=== PATIENT | female | born 1945 | race Caucasian/White ===

== ENCOUNTER 2018-05-21 09:39 | Emergency (ER) | payer MEDICARE ==
--- NOTE | 2018-05-21 10:24 | ED ---
Palpitations / Dysrhythmia - HPI Summary HPI Summary: Pt is a 72 y/o female who presents to the ED c/o palpitations since this morning. She began to feel intermittent palpitations underneath her left breast , lasting between 15 and 60 seconds at a time. Pt reports no current palpitations. During each episode she also noted numbness to the left side of her face and neck. Pt denies any CP or SOB. She also states that she had high BP today. She had a cardiac catheterization 2 years ago after coding during a knee surgery, and her arteries were clean. PMHx HLD, HTN, and DVT. - History of Current Complaint Chief Complaint: EDDysrhythmPalp Time Seen by Provider: 05/21/18 10:06 Hx Obtained From: Patient Onset/Duration: Gradual Onset, Resolved Timing: Intermittent Episodes Lasting: - 15-60 secs Severity Currently: None Character: Pounding Aggravating: Nothing Alleviating: Nothing Associated Signs & Symptoms: Negative - Allergy/Home Medications Allergies/Adverse Reactions: Allergies Allergy/AdvReac Type Severity Reaction Status Date / Time Sulfa (Sulfonamide AdvReac Hives Verified 05/21/18 10:02 Antibiotics) Home Medications: Home Medications Cyanocobalamin (Vitamin B-12) [B-12] 1,000 mcg PO DAILY 05/21/18 [History Confirmed 05/21/18] Latanoprost 0.005%* [Xalatan 0.005%*] 1 drop BOTH EYES QPM 05/21/18 [History Confirmed 05/21/18] Magnesium Oxide [Magnesium] 250 mg PO DAILY 05/21/18 [History Confirmed 05/21/18 ] Potassium Chlor TAB* [Klor Con ER TAB*] 10 meq PO DAILY 05/21/18 [History Confirmed 05/21/18] Vitamin B Complex CAP* [B Complex CAP*] 1 cap PO DAILY 05/21/18 [History Confirmed 05/21/18] PMH/Surg Hx/FS Hx/Imm Hx Endocrine/Hematology History: Denies: Hx Diabetes Cardiovascular History: Reports: Hx Deep Vein Thrombosis, Hx Hypercholesterolemia, Hx Hypertension Denies: Hx Atrial Fibrillation, Hx Pacemaker/ICD Respiratory History: Denies: Hx Asthma Musculoskeletal History: Reports: Hx Arthritis - LOW BACK, Hx Back Problems - low back pain Denies: Hx Rheumatoid Arthritis, Hx Osteoporosis Sensory History: Reports: Hx Cataracts - HX OF, Hx Contacts or Glasses, Hx Glaucoma Denies: Hx Hearing Aid Opthamlomology History: Reports: Hx Cataracts - HX OF, Hx Contacts or Glasses, Hx Glaucoma Neurological History: Reports: Other Neuro Impairments/Disorders - PAIN CLINIC PT Psychiatric History: Denies: Hx Panic Disorder - Cancer History Cancer Type, Location and Year: uterine cancer Hx Chemotherapy: No Hx Radiation Therapy: No - Surgical History Surgery Procedure, Year, and Place: 2013-June, HYsterectomy. c-sections in 1970s [place]. 1974 & 1988 eye surgeries WITH SCLERAL JEAN CARLOS(PLASTIC) [place],. 2007 BILATERAL CATARACT REMOVED [place]. 2007 VITRECTOMY [place] Hx Anesthesia Reactions: No Infectious Disease History: No Infectious Disease History: Denies: Traveled Outside the [place] in Last 30 Days - Family History Known Family History: Negative: Other - breast CA - Social History Alcohol Use: Daily Alcohol Amount: 2 glasses of wine daily Hx Substance Use: No Substance Use Type: Reports: None Hx Tobacco Use: Yes Smoking Status (MU): Former Smoker Type: Cigarettes Amount Used/How Often: 1/2 PPD FOR ABOUT 10 YEARS Length of Time of Smoking/Using Tobacco: 10 YEARS ABOUT Have You Smoked in the Last Year: No Review of Systems Positive: Palpitations. Negative: Chest Pain Negative: Shortness Of Breath Positive: Numbness - left side of neck and face All Other Systems Reviewed And Are Negative: Yes Physical Exam - Summary Physical Exam Summary: GENERAL: Patient is a well-developed and nourished F who is lying comfortable in the stretcher. Patient is not in any acute respiratory distress. HEAD AND FACE: Normocephalic EYES: PERRLA, EOMI x 2. EARS: Hearing grossly intact. MOUTH: Oropharynx within normal limits. NECK: Supple, trachea is midline, no adenopathy, no JVD, no carotid bruit. CHEST: Symmetric, no tenderness at palpation LUNGS: Clear to auscultation bilaterally. No wheezing or crackles. CVS: Regular rate and rhythm, S1 and S2 present, no murmurs or gallops appreciated. ABDOMEN: Soft, non-tender. Bowel sounds are normal. No abdominal abnormal pulsations. EXTREMITIES: Full ROM in all major joints, no edema, no cyanosis or clubbing. NEURO: Alert and oriented x 3. No acute neurological deficits. Speech is normal and follows commands. Cranial nerves II-XII grossly intact, no dysmetria finger to nose, nml heel to rodriguez SKIN: Dry and warm GCS: 15 Triage Information Reviewed: Yes Vital Signs On Initial Exam: Initial Vitals Temp Pulse Resp BP Pulse Ox 97.7 F 60 18 145/83 95 05/21/18 09:41 05/21/18 09:41 05/21/18 09:41 05/21/18 09:41 05/21/18 09:41 Vital Signs Reviewed: Yes Diagnostics - Vital Signs Vital Signs Temp Pulse Resp BP Pulse Ox 05/21/18 10:00 60 18 95 05/21/18 09:58 60 7 145/88 94 05/21/18 09:41 97.7 F 60 18 145/83 95 - Laboratory Result Diagrams: 05/21/18 10:18 05/21/18 10:18 Lab Statement: Any lab studies that have been ordered have been reviewed, and results considered in the medical decision making process. - Radiology CXR Radiology Interpretation Completed By: Radiologist Summary of Radiographic Findings: Stigmata of obstructive lung disease. No acute pulmonary or cardiac process evident. ED physician reviewed radiology report. - CT Brain CT CT Interpretation Completed By: Radiologist Summary of CT Findings: NO ACUTE INTRACRANIAL PATHOLOGY. ED physician reviewed radiology report. Chest/Thorax CTA CT Interpretation Completed By: Radiologist Summary of CT Findings: No definite pulmonary embolus is noted. ED physician reviewed radiology report. - EKG 9:54 Cardiac Rate: Bradycardia - 56 bpm EKG Rhythm: Sinus Rhythm Summary of EKG Findings: LVH with some repolarization abnormalities. Re-Evaluation - Re-Evaluation First Eval Re-Evaluation Time: 12:05 Change: Unchanged Comment: Pt feels fine, but is still getting intermittent palpitations. Reviewed the strip which looks like PACs. Second Eval Re-Evaluation Time: 14:20 Change: Unchanged Comment: Discussed plan of care with pt. Course/Dx - Course Course Of Treatment: Pt is a 72 y/o female who presents to the ED c/o palpitations since this morning. She had a cardiac catheterization 2 years ago after coding during a knee surgery, and her arteries were clean. A CXR was negative. A brain CT was negative. A chest/thorax CTA was negative. An EKG revealed bradycardia at a rate of 56 bpm, and LVH with some repolarization abnormalities. Pt will be discharged with a final dx of palpitations. I discussed results with patient and she reports feeling better. She is hemodynamically stable and safe for discharge. Strict return precautions given and she will otherwise follow up with her PCP. - Diagnoses Provider Diagnoses: Palpitations Discharge - Sign-Out/Discharge Documenting (check all that apply): Patient Departure - Discharge Patient Received Moderate/Deep Sedation with Procedure: No - Discharge Plan Condition: Stable Disposition: HOME Patient Education Materials: Heart Palpitations (ED) Referrals: Damaris Menendez MD [Primary Care Provider] - (1-3 days) Additional Instructions: Follow up with your primary care physician in 1-3 days. RETURN TO THE EMERGENCY DEPARTMENT FOR CHANGING OR WORSENING SYMPTOMS. - Billing Disposition and Condition Condition: STABLE Disposition: Home - Attestation Statements Document Initiated by Chen: Yes Documenting Scribe: Tea Feldman Provider For Whom Chen is Documenting (Include Credential): Ann Tran MD Scribe Attestation: Tea Almonte, scribed for Ann Tran MD on 05/21/18 at 1839. Scribe Documentation Reviewed: Yes Provider Attestation: The documentation as recorded by the scribeTea accurately reflects the service I personally performed and the decisions made by me, Ann Tran MD Status of Scribe Document: Viewed
[2018-05-21 10:33] LABS: ABS Basophils 0 10^3/ul (0-0.2); ABS Eosinophils 0.1 10^3/ul (0-0.6); ABS Lymphocytes 1.2 10^3/ul (1.0-4.8); ABS Monocytes 0.3 10^3/ul (0-0.8); ABS Neutrophils 1.6 10^3/ul (1.5-7.7); ABS Nucleated RBC 0 10^3/ul; Eosinophil % 2.5 %; Hematocrit 43 % (35-47); Hemoglobin 14.4 g/dl (12.0-16.0); Lymphocyte % 37.2 %; Mean Corpuscular HGB Conc 33 g/dl (31-36); Mean Corpuscular Hemoglobin 32 pg (27-31); Mean Corpuscular Volume 95 fL (80-97); Mean Platelet Volume 9.2 fL (7.4-10.4); Nucleated Red Blood Cells % 0; Platelet Count 181 10^3/ul (150-450); Red Blood Count 4.55 10^6/ul (4.00-5.40); Red Cell Distribution Width 14 % (10.5-15); White Blood Count 3.2 10^3/ul (3.5-10.8)
[2018-05-21] MEDS ORDERED: NS 0.9% 1000 ML** 1,000 ML IV ONE (10:36)
[2018-05-21 10:52] LABS: Albumin 4.1 g/dL (3.2-5.2); Albumin/Globulin Ratio 1.9 (1-3); BUN/Creatinine Ratio 26.2 (8-20); Calcium 9.2 mg/dL (8.6-10.3); EGFR African American 107.8 (>60); EGFR Non-African American 89.1 (>60); Globulin 2.2 g/dL (2-4); Magnesium 2.1 mg/dL (1.9-2.7); Potassium 4.1 mmol/L (3.5-5.0); Total Bilirubin 0.6 mg/dL (0.2-1.0); Total Protein 6.3 g/dL (6.4-8.9)
[2018-05-21] MEDS ORDERED: Iohexol 350* (CONTRAST) 500 ML MDV IV ONE (11:08)
[2018-05-21 11:35] LABS: TSH (Thyroid Stimulating Horm) 0.91 mcIU/mL (0.34-5.60)
[2018-05-21 13:08] LABS: Urine Appearance Clear; Urine Bilirubin Negative (Negative); Urine Blood Negative (Negative); Urine Color Yellow; Urine Glucose Negative (Negative); Urine Ketones Negative (Negative); Urine Nitrite Negative (Negative); Urine Protein Negative (Negative); Urine Urobilinogen Negative (Negative)
[2018-05-21 14:14] VITALS: BP 155/92
== END 2018-05-21 15:04 | disposition home or self-care (01) ==
LOC: ED 09:39
DX: R00.2 Palpitations (principal); R20.0 Anesthesia of skin; R06.02 Shortness of breath; R00.1 Bradycardia, unspecified; Z88.2 Allergy status to sulfonamides; Z87.891 Personal history of nicotine dependence
CPT/HCPCS: 36415; 70450; 71045; 71275; 80053; 81003; 83605; 83735; 84443; 84484; 85025; 85379; 93005; 96360; 96361; 99283; Q9967

== ENCOUNTER → 2018-09-11 15:27 | Emergency (ER) | payer MEDICARE ==
--- OUTSIDE RECORDS SUMMARY | 2018-09-11 17:01 | XMS REPORT | Continuity of Care Document ---
:1945 External Reference #:[id number] Author Name Mary Jane Allred Care Team Providers Name Role Phone Damaris Menendez MD Primary Care Physician Unavailable Payers Date Identification Numbers Payment Provider Subscriber Policy Number: [id number] [facility] Health Plan o Mahendra Hubbard PayID: [id number] Attn [facility] Claims Dept [address] [place] [address] Advance Directives Type Date Description Status Comment Other Directive 01/11/2011 Health Care Proxy Current and Verified Problems Active Problems Provider Date Pure hypercholesterolemia Damaris Menendez M.D. Onset: 04/11/2010 Benign essential hypertension Damaris Menendez M.D. Onset: 04/11/2010 Endometrial carcinoma Damaris Menendez M.D. Onset: 08/10/2013 Note: Grade 1; Dr Cummings reviewed during thrombosis consult Localized, primary osteoarthritis Jaja Stiles M.D. Onset: 02/13/2016 Arthroplasty of knee Jaja Stiles M.D. Onset: 04/02/2016 Open-angle glaucoma Damaris Menendez M.D. Onset: 04/29/2016 Deep venous thrombosis of peroneal vein Thompson Cyr MD Onset: 2016 Note: Dr Cummings consulted (and aware of endometrial cancer) Family History Date Family Member(s) Observation Comments General Diabetes General Cancer General Heart Disease : (age 63 Father due to Cancer brain Years) : (age 90 Mother due to CHF DM, HTN Years) Mother Diabetes Siblings 3 male-60 male 70 heart disease female-77 Myasthenia Gravis First Brother Coronary Artery Disease onset age 46, stents (CAD) Second Brother Alive And Well First Sister Myasthenia gravis Social History Type Date Description Comments Sex Unknown Marital Status Lives With 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 Tobacco Use Start: Unknown End: Former Cigarette Smoker quit in 1975 Unknown ETOH Use Drinks 2 Alcoholic Beverages Per Day Tobacco Use Start: Unknown End: Patient is a former quit in 1978 Unknown smoker Smoking Status Reviewed: 08/15/18 Patient is a former quit in 1978 smoker Exercise Type/Frequency Exercises regularly Allergies, Adverse Reactions, Alerts Active Allergies Reaction Severity Comments Date Sulfa RASH 09/29/2009 Timolol caused heart to stop in surgey Severe 04/26/2016 Medications Active Medications SIG Qnty Indications Ordering Provider Date Vitamin B-12 1 by mouth every [facility], 10/25/2016 1000mcg day M.D. Tablets Ibuprofen 3 daily [facility], 10/25/2016 200mg M.D. Tablets Amoxicillin take 4 tablets by 4caps Z96.652 Jaja Stiles, 08/27/2016 500mg mouth 1 hour M.D. Capsules before dental procedure MDD 4 Compression Jaja Stiles, 04/02/2016 Stockings M.D. Misc Gabapentin take 1-2 capsules 60caps [facility], 08/28/2015 300mg by mouth at M.D. Capsules bedtime Potassium Chloride Take 1 Tablet 90tabs [facility], 11/26/2014 Jillian ER Daily M.D. 10Meq Tablets ER Vit D3 1 p qd Unknown 5000Units Latanoprost left eye hs Unknown 0.005% Solution Brimonidine Tartrate Left Eye bid Unknown 0.2% Solution Aspir-81 1 by mouth every Unknown 81mg Tablets day DR Magnesium 1 po qd Unknown 250mg Tablets ER B Complete once a day Unknown Tablets History Medications Meloxicam 1 by mouth 30tabs M25.562 Jaja Stiles, 06/14/2017 - 15mg Tablets every day M.D. 08/25/2017 Naprosyn take 1 by 60tabs Z47.1 Jaja Stiles, 06/13/2016 - 500mg Tablets mouth twice a M.D. 10/25/2016 day as needed pain Oxycodone HCL ER Take 1 tab po 30tabs Jaja Stiles, 04/19/2016 - 10mg Tab ER qhs prn pain M.D. 06/13/2016 12H Abuse-Det Oxycodone HCL 1 tab by mouth 60tabs Jaja Stiles, 04/19/2016 - 5mg Tablets every 4-6 M.D. 06/13/2016 hours as needed for pain Oxycodone HCL 1-2 tab by 60caps Jaja Stiles, 04/11/2016 - 5mg Capsules mouth every 4- M.D. 08/26/2016 6 hours as needed pain Oxycodone HCL 1 tab by mouth 7tabs Hannah 04/04/2016 - 10mg Tablets daily for 7 Martines, M.D. 04/17/2016 days as needed for pain Oxycodone HCL 1-2 tabs by 45caps Jaja Stiles, 03/28/2016 - 5mg Capsules mouth every M.D. 04/17/2016 4-6 hours as needed pain Amlodipine Besylate 1/2 by mouth 90tabs Damaris 03/24/2016 - 5mg Tablets every day Nicolasa Menendez 03/27/2016 Oxycontin take one tab 14tabs Jaja Stiles, 03/23/2016 - 10mg Tab ER 12H by mouth once M.D. 06/13/2016 Abuse-Det a day for 7 days as needed for pain Ibuprofen three times a 90tabs Jaja Stiles, 03/23/2016 - 600mg Tablets day as needed M.D. 10/25/2016 pain Not Taking Warfarin Sodium take 1-3 tabs 60tabs Jaja Stiles, 03/07/2016 - 2mg Tablets at 5pm every M.D. 04/03/2016 night Oxycodone-Acetaminophen 1-2 tabs by 60tabs Jaja Stiles, 03/07/2016 - 5-325mg mouth every 6 M.D. 04/17/2016 Tablets hours as needed for pain Colace 1 tab by mouth 60caps Jaja Stiles, 03/07/2016 - 100mg Capsules twice a day as M.D. 08/26/2016 needed Pravastatin Sodium take one 90tabs 272.2 Damaris 12/23/2015 - 10mg Tablets tablet by Nicolasa Menendez 02/22/2016 mouth at bedtime Gabapentin take 1-3 45caps Damaris 12/21/2014 - 100mg Capsules capsules at Nicolasa Menendez 08/28/2015 bedtime Gabapentin take 1 to 2 60caps 729.5 [facility] 11/19/2014 - 300mg Capsules capsules by Nicolasa Menendez 12/21/2014 mouth at bedtime Hydrocodone-Acetaminophen 1-2 tabs by 180tabs 729.5 Daniel Good NP 2014 - mouth q4 hours 02/12/2016 5-325mg Tablets as needed pain limit 6 tabs per day Doxycycline Hyclate take two 2tabs E906.4 Matt Torres NP 02/17/2014 - 100mg tablets once. 09/17/2014 Tablets Potassium Chloride ER 1 by mouth 90tabs [facility] 11/27/2013 - 10Meq every day Nicolasa Menendez 11/26/2014 Tablets ER Pravastatin Sodium take one 90tabs 272.2 [facility] 09/01/2013 - 10mg Tablets tablet by Nicolasa Menendez 09/17/2014 mouth at bedtime Potassium Chloride CR 1 po qd 30tabs [facility] 03/24/2013 - 10Meq Nicolasa Menendez 11/27/2013 Tablets ER Salsalate 1-2 po bid 120tabs 724.02 [facility] 11/03/2012 - 750mg Tablets Nicolasa Menendez 03/03/2013 Tramadol HCL 1-2 tablets 60tabs 724.02 [facility] 11/03/2012 - 50mg Tablets every 6 hours Nicolasa Menendez 09/01/2013 as needed Vit B6 & B12 [facility] 06/09/2012 - Nicolasa Menendez 08/26/2016 Hydrochlorothiazide take 1 tablet 90tabs Damaris 08/03/2011 - 25mg daily Nicolasa Menendez 03/24/2016 Tablets Atorvastatin Calcium Take 1 Tablet 90tabs 272.4 Damaris 04/13/2011 - 10mg Daily Nicolasa Menendez 09/01/2013 Tablets Glucosamine-Chondroitin po bid 60caps [facility] 10/12/2010 - 1500mg Nicolasa Menendez 06/09/2012 Capsules Ibuprofen prn [facility] 10/12/2010 - 200mg Capsules Nicolasa Menendez 04/26/2016 Fish Oil 1 po qd [facility] 10/12/2010 - 300mg Capsules Nicolasa Menendez 06/09/2012 Glucosimine Sulfate 2 po qd [facility] 10/12/2010 - 1500mg Nicolasa Menendez 10/12/2010 Capsules Vitamin D 1 po qd 60caps [facility] 10/12/2010 - 300mg Capsules Nicolasa Menendez 06/09/2012 Lovastatin 2 tablets once 180tabs [facility] 09/29/2009 - 40mg Tablets daily at Nicolasa Menendez 10/12/2010 bedtime HCTZ 1 tablet once 90units [facility] 09/29/2009 - 25mg. daily Nicolasa Menendez 08/03/2011 Magnesium 1 by mouth Unknown - 250mg Tablets every day 11/13/2014 Centrum Flavor Burst Unknown - Adult 11/13/2014 Chewtabs Multivitamin Adults 50+ Unknown - Adlt 09/01/2015 50+ Tablets Magnesium Citrate 2 tabs at hs Unknown - 100mg Tablets 04/26/2016 Probiotic prn Unknown - 10/25/2016 Enoxaparin Sodium 80 mg s/c 16ml [facility] - 80mg/0.8ML every 12 hours Nicolasa Menendez 04/15/2016 Solution Eliquis 1 by mouth Adebayo Cummings - 5mg Tablets twice a day MD Jong 10/25/2016 Medications Administered in Office Medication SIG Qnty Indications Ordering Provider Date Depomedrol 80MG Hannah Martines M.D. 01/27/2015 Injection Depomedrol 40MG Gama Green M.D. 10/13/2010 Injection Immunizations CPT Code Status Date Vaccine Lot # [id number] Given 03/26/2018 Influenza Virus Vaccine, Quadrivalent, Split, Preservative Free 32450 Given 03/26/2017 Influenza Virus Vaccine, Quadrivalent, Split, Preservative Free [id number] Given 12/28/2015 Afluria Vaccine [id number] Given 03/25/2015 Influenza Virus Vaccine, Quadrivalent, Split, [id number] Preservative Free 48215 Given 11/19/2014 Pneumococcal Conjugate Vaccine 13 Valent For [id number] Intramuscular Use 93670 Given 02/17/2014 Flu Vaccine Split Virus Preservative Free For Indiv [id number] 3Yr Older 14994 Given 03/03/2013 Flu Vaccine Split Virus Preservative Free For Indiv [id number] 3Yr Older 93100 Given 10/12/2010 Pneumonia Vaccine [id number] 30369 Given 12/23/2008 Influenza Virus 3Yrs & Over 13249 Given 05/12/2008 Zoster (Zostavax) 84596 Given 02/05/2007 Influenza Virus 3Yrs & Over 92296 Given 02/05/2007 Influenza Virus 3Yrs & Over 57771 Given 06/27/2006 Hepatitis B Vaccine Adult Dosage 77819 Given 06/27/2006 Tdap - Tetanus/Diptheria/Acellular Pertussis 83900 Given 06/27/2006 Tdap - Tetanus/Diptheria/Acellular Pertussis Vital Signs Date Vital Result Comment 08/15/2018 1:04pm Height 65 inches 5'5" Weight 178.00 lb Heart Rate 56 /min BP Systolic Sitting 141 mmHg BP Diastolic Sitting 87 mmHg Body Temperature 97.6 F O2 % BldC Oximetry 96 % BMI (Body Mass Index) 29.6 kg/m2 08/14/2018 12:02pm Height 65 inches 5'5" Weight 177.12 lb Heart Rate 66 /min BP Systolic Sitting 150 mmHg BP Diastolic Sitting 88 mmHg O2 % BldC Oximetry 93 % BMI (Body Mass Index) 29.5 kg/m2 06/02/2018 3:19pm Height 65 inches 5'5" Weight 173.00 lb Heart Rate 64 /min BP Systolic Sitting 136 mmHg BP Diastolic Sitting 80 mmHg O2 % BldC Oximetry 96 % BMI (Body Mass Index) 28.8 kg/m2 05/22/2018 1:13pm Height 65 inches 5'5" Weight 171.00 lb Heart Rate 62 /min BP Systolic Sitting 132 mmHg BP Diastolic Sitting 76 mmHg Body Temperature 97.5 F O2 % BldC Oximetry 97 % BMI (Body Mass Index) 28.5 kg/m2 09/02/2017 9:08am Height 65 inches 5'5" Weight 158.00 lb Heart Rate 60 /min BP Systolic Sitting 112 mmHg BP Diastolic Sitting 78 mmHg Respiratory Rate 16 /min Body Temperature 97.0 F Pain Level 0 BMI (Body Mass Index) 26.3 kg/m2 08/26/2017 11:03am Height 65 inches 5'5" Weight 168.00 lb BP Systolic 124 mmHg BP Diastolic 84 mmHg Body Temperature 97.5 F BMI (Body Mass Index) 28.0 kg/m2 06/14/2017 11:57am Height 65 inches 5'5" Heart Rate 61 /min BP Systolic 116 mmHg BP Diastolic 62 mmHg Respiratory Rate 16 /min Body Temperature 97.0 F Pain Level 5 05/30/2017 3:23pm Height 65 inches 5'5" Weight 167.00 lb Heart Rate 54 /min BP Systolic Sitting 140 mmHg BP Diastolic Sitting 84 mmHg Body Temperature 97.0 F O2 % BldC Oximetry 97 % BMI (Body Mass Index) 27.8 kg/m2 10/25/2016 10:50am Weight 176.00 lb Heart Rate 62 /min BP Systolic Sitting 120 mmHg BP Diastolic Sitting 82 mmHg Respiratory Rate 16 /min O2 % BldC Oximetry 96 % 08/27/2016 11:30am Height 65 inches 5'5" Weight 177.00 lb Heart Rate 68 /min BP Systolic 140 mmHg BP Diastolic 88 mmHg Respiratory Rate 11 /min Pain Level 0 BMI (Body Mass Index) 29.5 kg/m2 06/13/2016 11:34am Height 65 inches 5'5" Weight 177.00 lb Heart Rate 60 /min BP Systolic 115 mmHg BP Diastolic 86 mmHg Respiratory Rate 16 /min Pain Level 4 BMI (Body Mass Index) 29.5 kg/m2 05/23/2016 9:32am Height 65 inches 5'5" Weight 177.00 lb Heart Rate 75 /min BP Systolic 118 mmHg BP Diastolic 77 mmHg Pain Level 1 BMI (Body Mass Index) 29.5 kg/m2 05/21/2016 9:08am Weight 177.00 lb with shoes Heart Rate 73 /min BP Systolic 120 mmHg BP Diastolic 80 mmHg Body Temperature 98.1 F O2 % BldC Oximetry 97 % 05/09/2016 10:15am Height 65 inches 5'5" Heart Rate 78 /min BP Systolic 121 mmHg BP Diastolic 75 mmHg 04/26/2016 11:04am Height 65 inches 5'5" Weight 178.00 lb Heart Rate 70 /min BP Systolic Sitting 140 mmHg BP Diastolic Sitting 80 mmHg O2 % BldC Oximetry 98 % BMI (Body Mass Index) 29.6 kg/m2 04/25/2016 9:30am Height 65.75 inches 5'5.75" Weight 177.00 lb Pain Level 4 BMI (Body Mass Index) 28.8 kg/m2 04/25/2016 9:27am Height 65.75 inches 5'5.75" 04/03/2016 1:25pm Heart Rate 74 /min BP Systolic Sitting 128 mmHg BP Diastolic Sitting 74 mmHg Respiratory Rate 15 /min Body Temperature 98.0 F O2 % BldC Oximetry 97 % 04/02/2016 2:17pm Height 65.75 inches 5'5.75" Heart Rate 80 /min BP Systolic 108 mmHg BP Diastolic 63 mmHg Pain Level 5 03/07/2016 8:18am Height 65.75 inches 5'5.75" Weight 182.00 lb BP Systolic 120 mmHg BP Diastolic 80 mmHg Respiratory Rate 17 /min Pain Level 0 BMI (Body Mass Index) 29.6 kg/m2 03/07/2016 8:18am Height 55 inches 4'7" 02/22/2016 12:54pm Weight 185.00 lb Heart Rate 64 /min BP Systolic Sitting 128 mmHg BP Diastolic Sitting 84 mmHg Respiratory Rate 15 /min Body Temperature 97.1 F O2 % BldC Oximetry 98 % 02/13/2016 11:16am Height 65.75 inches 5'5.75" Weight 179.00 lb Heart Rate 64 /min BP Systolic Sitting 110 mmHg BP Diastolic Sitting 72 mmHg Respiratory Rate 16 /min Pain Level 6 at the very worst BMI (Body Mass Index) 29.1 kg/m2 09/21/2015 11:28am Height 65.75 inches 5'5.75" Weight 177.00 lb Heart Rate 54 /min BP Systolic 135 mmHg BP Diastolic 81 mmHg BMI (Body Mass Index) 28.8 kg/m2 09/01/2015 11:19am Weight 171.00 lb Heart Rate 61 /min BP Systolic Sitting 116 mmHg BP Diastolic Sitting 76 mmHg Body Temperature 97.3 F O2 % BldC Oximetry 96 % 01/27/2015 3:57pm Height 65 inches 5'5" Weight 180.00 lb Heart Rate 75 /min BP Systolic Sitting 140 mmHg BP Diastolic Sitting 89 mmHg Respiratory Rate 18 /min Pain Level 4 BMI (Body Mass Index) 30.0 kg/m2 12/21/2014 11:24am Weight 184.00 lb Heart Rate 62 /min BP Systolic Sitting 136 mmHg BP Diastolic Sitting 76 mmHg Body Temperature 97.0 F 11/19/2014 11:01am Weight 182.00 lb Heart Rate 67 /min BP Systolic Sitting 126 mmHg BP Diastolic Sitting 82 mmHg Pain Level 2 09/17/2014 2:04pm Weight 177.00 lb Heart Rate 72 /min BP Systolic Sitting 128 mmHg BP Diastolic Sitting 84 mmHg O2 % BldC Oximetry 98 % 02/17/2014 10:21am Weight 182.00 lb Heart Rate 72 /min BP Systolic Sitting 130 mmHg BP Diastolic Sitting 72 mmHg Body Temperature 97.7 F 11/25/2013 11:03am Weight 186.00 lb Heart Rate 65 /min BP Systolic Sitting 130 mmHg BP Diastolic Sitting 70 mmHg Body Temperature 97.2 F 10/26/2013 1:04pm Height 65.5 inches 5'5.50" Weight 187.25 lb Heart Rate 80 /min BP Systolic Sitting 138 mmHg BP Diastolic Sitting 88 mmHg Body Temperature 98.2 F BMI (Body Mass Index) 30.7 kg/m2 09/01/2013 9:43am Weight 188.50 lb Heart Rate 68 /min BP Systolic 134 mmHg BP Diastolic 90 mmHg Respiratory Rate 16 /min Body Temperature 97.3 F 05/11/2013 1:29pm Weight 190.00 lb Heart Rate 76 /min BP Systolic Sitting 130 mmHg BP Diastolic Sitting 76 mmHg 03/30/2013 11:11am Weight 191.75 lb Heart Rate 72 /min BP Systolic 130 mmHg BP Diastolic 82 mmHg 03/23/2013 4:30pm Weight 192.00 lb Heart Rate 72 /min BP Systolic Sitting 128 mmHg BP Diastolic Sitting 82 mmHg Body Temperature 97.6 F 03/03/2013 1:32pm Weight 194.00 lb Heart Rate 74 /min BP Systolic Sitting 132 mmHg BP Diastolic Sitting 80 mmHg 11/03/2012 1:34pm Height 65 inches 5'5" Weight 191.25 lb Heart Rate 70 /min BP Systolic Sitting 150 mmHg BP Diastolic Sitting 80 mmHg BMI (Body Mass Index) 31.8 kg/m2 06/09/2012 1:05pm Height 65 inches 5'5" Weight 188.50 lb Heart Rate 60 /min BP Systolic Sitting 120 mmHg BP Diastolic Sitting 62 mmHg BMI (Body Mass Index) 31.4 kg/m2 03/11/2012 3:47pm Height 65 inches 5'5" Weight 191.00 lb Heart Rate 72 /min BP Systolic Sitting 124 mmHg BP Diastolic Sitting 74 mmHg BMI (Body Mass Index) 31.8 kg/m2 10/18/2011 3:57pm Height 65 inches 5'5" Weight 187.00 lb Heart Rate 68 /min BP Systolic Sitting 118 mmHg BP Diastolic Sitting 80 mmHg BMI (Body Mass Index) 31.1 kg/m2 04/13/2011 1:01pm Height 66 inches 5'6" Weight 183.00 lb Heart Rate 74 /min BP Systolic Sitting 132 mmHg BP Diastolic Sitting 80 mmHg BMI (Body Mass Index) 29.5 kg/m2 10/12/2010 10:36am Height 66 inches 5'6" Weight 178.00 lb Heart Rate 78 /min BP Systolic Sitting 126 mmHg BP Diastolic Sitting 72 mmHg BMI (Body Mass Index) 28.7 kg/m2 09/29/2010 10:52am Height 65 inches 5'5" Weight 179.00 lb Heart Rate 63 /min BP Systolic 122 mmHg BP Diastolic 87 mmHg BMI (Body Mass Index) 29.8 kg/m2 09/25/2010 10:57am Height 64.5 inches 5'4.50" Weight 184.00 lb Heart Rate 60 /min BP Systolic Sitting 120 mmHg BP Diastolic Sitting 70 mmHg BMI (Body Mass Index) 31.1 kg/m2 10/04/2009 8:05pm Weight 185.00 lb Heart Rate 62 /min BP Systolic 128 mmHg BP Diastolic 82 mmHg Results Test Date Facility Test Result H/L Range Note Lipid Profile 05/29/2018 [facility] Triglycerides 149 mg/dL 1 (Trig/Chol/HDL) [address] [place] [address] [phone] Cholesterol 248 mg/dL 2 HDL Cholesterol 63.8 mg/dL 3 LDL Cholesterol 154 mg/dL 4 Comp Metabolic Panel 05/29/2018 [facility] Sodium 138 mmol/L N 135-[address] [place] [address] [phone] Potassium 4.1 mmol/L N 3.5-5.0 Chloride 104 mmol/L N 101-111 Co2 Carbon Dioxide 27 mmol/L N 22-32 Anion Gap 7 mmol/L N 2-11 Glucose 110 mg/dL High 70-100 Blood Urea Nitrogen 18 mg/dL N 6-24 Creatinine 0.63 mg/dL N 0.51-0.95 BUN/Creatinine Ratio 28.6 High 8-20 Calcium 9.7 mg/dL N 8.6-10.3 Total Protein 6.4 g/dL N 6.4-8.9 Albumin 4.3 g/dL N 3.2-5.2 Globulin 2.1 g/dL N 2-4 Albumin/Globulin Ratio 2.0 N 1-3 Total Bilirubin 0.70 mg/dL N 0.2-1.0 Alkaline Phosphatase 41 U/L N 34-104 Alt 15 U/L N 7-52 Ast 17 U/L N 13-39 Egfr Non- 92.4 >60 Egfr 111.8 >60 5 Laboratory test 05/21/2018 [facility] Troponin-I (TnI) 0.00 ng/ mL <0.04 6 finding [address] [place] [address] [phone] Laboratory test 05/21/2018 [facility] Magnesium 2.1 mg/dL N 1.9-2.7 finding [address] [place] [address] [phone] Troponin-I (TnI) 0.00 ng/mL <0.04 7 TSH (Thyroid Stim Horm) 0.91 mcIU/mL N 0.34-5.60 Comp Metabolic Panel 05/21/2018 [facility] Sodium 139 mmol/L N 135-145 [address] [place] [address] [phone] Potassium 4.1 mmol/L N 3.5-5.0 Chloride 107 mmol/L N 101-111 Co2 Carbon Dioxide 25 mmol/L N 22-32 Anion Gap 7 mmol/L N 2-11 Glucose 101 mg/dL High 70-100 Blood Urea Nitrogen 17 mg/dL N 6-24 Creatinine 0.65 mg/dL N 0.51-0.95 BUN/Creatinine Ratio 26.2 High 8-20 Calcium 9.2 mg/dL N 8.6-10.3 Total Protein 6.3 g/dL Low 6.4-8.9 Albumin 4.1 g/dL N 3.2-5.2 Globulin 2.2 g/dL N 2-4 Albumin/Globulin Ratio 1.9 N 1-3 Total Bilirubin 0.60 mg/dL N 0.2-1.0 Alkaline Phosphatase 39 U/L N 34-104 Alt 13 U/L N 7-52 Ast 15 U/L N 13-39 Egfr Non- 89.1 >60 Egfr 107.8 >60 8 Urinalysis Profile 05/21/2018 [facility] Urine Color Yellow [address] [place] [address] [phone] Urine Appearance Clear Urine Specific [place] 1.030 N 1.010-1.030 Urine pH 7.0 N 5-9 Urine Urobilinogen Negative Negative Urine Ketones Negative Negative Urine Protein Negative Negative Urine Leukocytes Negative Negative Urine Blood Negative Negative * * Abnormal Negative 9 Urine Nitrite Negative Negative Urine Bilirubin Negative Negative Urine Glucose Negative Negative Laboratory test 05/21/2018 [facility] D Dimer 321 ng/mL High Less [address] Quantitative Than 230 [place] [address] [phone] CBC Auto Diff 05/21/2018 [facility] White Blood 3.2 Low 3.5- 10.[address] Count 10^3/[place] [address] [phone] Red Blood Count 4.55 10^6/uL N 4.00-5.40 Hemoglobin 14.4 g/dL N 12.0-16.0 Hematocrit 43 % N 35-47 Mean Corpuscular Volume 95 fL N 80-97 Mean Corpuscular Hemoglobin 32 pg High 27-31 Mean Corpuscular HGB Conc 33 g/dL N 31-36 Red Cell Distribution Width 14 % N 10.5-15 Platelet Count 181 10^3/uL N 150-450 Mean Platelet Volume 9.2 fL N 7.4-10.4 Abs Neutrophils 1.6 10^3/uL N 1.5-7.7 Abs Lymphocytes 1.2 10^3/uL N 1.0-4.8 Abs Monocytes 0.3 10^3/uL N 0-0.8 Abs Eosinophils 0.1 10^3/uL N 0-0.6 Abs Basophils 0 10^3/uL N 0-0.2 Abs Nucleated RBC 0 10^3/uL Granulocyte % 49.2 % Lymphocyte % 37.2 % Monocyte % 10.1 % Eosinophil % 2.5 % Basophil % 1.0 % Nucleated Red Blood Cells % 0 Laboratory test 05/21/2018 [facility] Lactic Acid 0.7 mmol/L N 0.5-2.0 [address] [place] [address] [phone] CBC Auto Diff 06/17/2017 [facility] White Blood 3.7 10^3/uL N 3.5-10.[address] [place] [address] [phone] Red Blood Count 4.51 10^6/uL N 4.0-5.4 Hemoglobin 14.4 g/dL N 12.0-16.0 Hematocrit 43 % N 35-47 Mean Corpuscular Volume 95 fL N 80-97 Mean Corpuscular Hemoglobin 32 pg High 27-31 Mean Corpuscular HGB Conc 34 g/dL N 31-36 Red Cell Distribution Width 14 % N 10.5-15 Platelet Count 183 10^3/uL N 150-450 Mean Platelet Volume 10 um3 N 7.4-10.4 Abs Neutrophils 1.4 10^3/uL Low 1.5-7.7 Abs Lymphocytes 1.8 10^3/uL N 1.0-4.8 Abs Monocytes 0.3 10^3/uL N 0-0.8 Abs Eosinophils 0.1 10^3/uL N 0-0.6 Abs Basophils 0 10^3/uL N 0-0.2 Abs Nucleated RBC 0 10^3/uL Granulocyte % 38.0 % N 38-83 Lymphocyte % 48.6 % High 25-47 Monocyte % 9.3 % High 0-7 Eosinophil % 3.0 % N 0-6 Basophil % 1.1 % N 0-2 Nucleated Red Blood Cells % 0.1 Laboratory test 06/17/2017 [facility] C Reactive < 1.00 N < 5.[address] Protein mg/[place] [address] [phone] Erythrocyte Sed Rate 6 mm/Hr N 0-40 Xray 06/14/2017 [facility] Knee 3 Views LT <pending> [address] [place] [address] [phone] Laboratory 12/11/2016 [facility] Lyme Disease Negative N Negative 13 test finding [address] [place] [address] [phone] Lipid Profile 10/18/2016 [facility] Triglycerides 107 mg/dL N 14 (Trig/Chol/HDL [address] ) [place] [address] [phone] Cholesterol 223 mg/dL N 15 HDL Cholesterol 55.1 mg/dL N 16 LDL Cholesterol 147 mg/dL N 17 Comp Metabolic Panel 10/18/2016 [facility] Sodium 138 mmol/L N 133-[address] [place] [address] [phone] Potassium 4.2 mmol/L N 3.5-5.0 Chloride 105 mmol/L N 101-111 Co2 Carbon Dioxide 27 mmol/L N 22-32 Anion Gap 6 mmol/L N 2-11 Glucose 106 mg/dL High 70-100 Blood Urea Nitrogen 14 mg/dL N 6-24 Creatinine 0.68 mg/dL N 0.51-0.95 BUN/Creatinine Ratio 20.6 High 8-20 Calcium 9.4 mg/dL N 8.6-10.3 Total Protein 6.5 g/dL N 6.4-8.9 Albumin 4.4 g/dL N 3.2-5.2 Globulin 2.1 g/dL N 2-4 Albumin/Globulin Ratio 2.1 N 1-3 Total Bilirubin 0.80 mg/dL N 0.2-1.0 Alkaline Phosphatase 37 U/L N 34-104 Alt 12 U/L N 7-52 Ast 15 U/L N 13-39 Egfr Non- 84.8 N >60 Egfr 109.1 N >60 18 Xray 05/09/2016 [facility] Knee 3 Views <pending> [address] [place] [address] [phone] CBC Auto Diff 04/02/2016 [facility] White Blood 6.7 10^3/uL N 3.5-10.[address] [place] [address] [phone] Red Blood Count 3.81 10^6/uL Low 4.0-5.4 Hemoglobin 12.0 g/dL N 12.0-16.0 Hematocrit 35 % N 35-47 Mean Corpuscular Volume 92 fL N 80-97 Mean Corpuscular Hemoglobin 31 pg N 27-31 Mean Corpuscular HGB Conc 34 g/dL N 31-36 Red Cell Distribution Width 13 % N 10.5-15 Platelet Count 387 10^3/uL N 150-450 Mean Platelet Volume 8 um3 N 7.4-10.4 Abs Neutrophils 4.1 10^3/uL N 1.5-7.7 Abs Lymphocytes 1.6 10^3/uL N 1.0-4.8 Abs Monocytes 0.6 10^3/uL N 0-0.8 Abs Eosinophils 0.3 10^3/uL N 0-0.6 Abs Basophils 0.1 10^3/uL N 0-0.2 Abs Nucleated RBC 0.01 10^3/uL N Granulocyte % 62.2 % N 38-83 Lymphocyte % 23.8 % Low 25-47 Monocyte % 8.5 % N 1-9 Eosinophil % 4.3 % N 0-6 Basophil % 1.2 % N 0-2 Nucleated Red Blood Cells % 0.1 N Inr/Protime 04/02/2016 [facility] Inr 1.82 High 0.89-1.[address] [place] [address] [phone] Laboratory test 04/02/2016 [facility] Partial 43.8 High 26.0- 36.[address] [place] [address] Time PTT [phone] Comp Metabolic 04/02/2016 [facility] Sodium 135 mmol/L N 133- [address] [place] [address] [phone] Potassium 3.6 mmol/L N 3.5-5.0 Chloride 100 mmol/L Low 101-111 Co2 Carbon Dioxide 26 mmol/L N 22-32 Anion Gap 9 mmol/L N 2-11 Glucose 131 mg/dL High 70-100 Blood Urea Nitrogen 24 mg/dL N 6-24 Creatinine 0.60 mg/dL N 0.51-0.95 BUN/Creatinine Ratio 40.0 High 8-20 Calcium 9.4 mg/dL N 8.6-10.3 Total Protein 7.2 g/dL N 6.4-8.9 Albumin 4.0 g/dL N 3.2-5.2 Globulin 3.2 g/dL N 2-4 Albumin/Globulin Ratio 1.3 N 1-3 Total Bilirubin 0.50 mg/dL N 0.2-1.0 Alkaline Phosphatase 187 U/L High 34-104 Alt 23 U/L N 7-52 Ast 19 U/L N 13-39 Egfr Non- 98.3 N >60 Egfr 126.4 N >60 19 Laboratory 04/02/2016 [facility] D Dimer > 1050 High Less 20 test finding [address] Quantitative ng/[place] [address] [phone] Type & Screen 03/07/2016 [facility] Patient Blood O Positive N [address] Type [place], [place] [id number] [phone] Antibody Screen NEGATIVE N Urine Culture And 03/07/2016 [facility] Urine Culture SEE RESULT [address] [place] [address] [phone] CBC Auto Diff 03/01/2016 [facility] White Blood 4.0 10^3/uL N 3.5-[address] Count 0.8 [place] [address] [phone] Red Blood Count 4.67 10^6/uL N 4.0-5.4 Hemoglobin 14.8 g/dL N 12.0-16.0 Hematocrit 44 % N 35-47 Mean Corpuscular Volume 94 fL N 80-97 Mean Corpuscular Hemoglobin 32 pg High 27-31 Mean Corpuscular HGB Conc 34 g/dL N 31-36 Red Cell Distribution Width 13 % N 10.5-15 Platelet Count 196 10^3/uL N 150-450 Mean Platelet Volume 10 um3 N 7.4-10.4 Abs Neutrophils 1.6 10^3/uL N 1.5-7.7 Abs Lymphocytes 1.8 10^3/uL N 1.0-4.8 Abs Monocytes 0.4 10^3/uL N 0-0.8 Abs Eosinophils 0.2 10^3/uL N 0-0.6 Abs Basophils 0 10^3/uL N 0-0.2 Abs Nucleated RBC 0 10^3/uL N Granulocyte % 40.2 % N 38-83 Lymphocyte % 44.6 % N 25-47 Monocyte % 10.0 % High 1-9 Eosinophil % 4.1 % N 0-6 Basophil % 1.1 % N 0-2 Nucleated Red Blood Cells % 0.1 N Comp Metabolic Panel 03/01/2016 [facility] Sodium 138 mmol/L N 133-[address] [place] [address] [phone] Potassium 4.1 mmol/L N 3.5-5.0 Chloride 103 mmol/L N 101-111 Co2 Carbon Dioxide 30 mmol/L N 22-32 Anion Gap 5 mmol/L N 2-11 Glucose 102 mg/dL High 70-100 Blood Urea Nitrogen 17 mg/dL N 6-24 Creatinine 0.67 mg/dL N 0.51-0.95 BUN/Creatinine Ratio 25.4 High 8-20 Calcium 9.5 mg/dL N 8.6-10.3 Total Protein 6.3 g/dL Low 6.4-8.9 Albumin 4.0 g/dL N 3.2-5.2 Globulin 2.3 g/dL N 2-4 Albumin/Globulin Ratio 1.7 N 1-3 Total Bilirubin 0.50 mg/dL N 0.2-1.0 Alkaline Phosphatase 39 U/L N 34-104 Alt 17 U/L N 7-52 Ast 16 U/L N 13-39 Egfr Non- 86.5 N >60 Egfr 111.3 N >60 23 Laboratory test 03/01/2016 [facility] Hemoglobin A1c 5.6 % N Less [address] (Glyco HGB) than 6.0 [place] [address] [phone] Inr/Protime 03/01/2016 [facility] Inr 0.82 Low 0.89-1.[address] 1 [place] [address] [phone] Laboratory test 03/01/2016 [facility] Partial 32.0 N 26.0-36. finding [address] Thrombo Time seconds 3 [place] [address] PTT [phone] Urinalysis 03/01/2016 [facility] Urine Color Yellow N Profile [address] [place] [address] [phone] Urine Appearance Clear N Urine Specific [place] 1.012 N 1.010-1.030 Urine pH 5.0 N 5-9 Urine Urobilinogen Negative N Negative Urine Ketones Negative N Negative Urine Protein Negative N Negative Urine Leukocytes Negative N Negative Urine Blood Negative N Negative Urine Nitrite Negative N Negative Urine Bilirubin Negative N Negative Urine Glucose Negative N Negative Laboratory test 11/07/2015 [facility] Hemoglobin A1c 5.8 % N Less 25, [address] (Glyco HGB) than 6.0 [place] [address] [phone] Comp Metabolic 11/07/2015 [facility] Sodium 145 N 133-[address] mmol/[place] [address] [phone] Potassium 4.2 mmol/L N 3.5-5.0 Chloride 108 mmol/L N 101-111 Co2 Carbon Dioxide 28 mmol/L N 22-32 Anion Gap 9 mmol/L N 2-11 Glucose 98 mg/dL N 70-100 Blood Urea Nitrogen 18 mg/dL N 6-24 Creatinine 0.63 mg/dL N 0.51-0.95 BUN/Creatinine Ratio 28.6 High 8-20 Calcium 9.1 mg/dL N 8.6-10.3 Total Protein 6.1 g/dL Low 6.4-8.9 Albumin 3.9 g/dL N 3.2-5.2 Globulin 2.2 g/dL N 2-4 Albumin/Globulin Ratio 1.8 N 1-3 Total Bilirubin 0.70 mg/dL N 0.2-1.0 Alkaline Phosphatase 38 U/L N 34-104 Alt 16 U/L N 7-52 Ast 17 U/L N 13-39 Egfr Non- 92.9 N >60 Egfr 119.5 N >60 27 Lipid Profile 11/07/2015 [facility] Triglycerides 110 mg/dL N 28 (Trig/Chol/HDL) [address] [place] [address] [phone] Cholesterol 211 mg/dL N 29 HDL Cholesterol 57.0 mg/dL N 30 LDL Cholesterol 132 mg/dL N 31 Laboratory test 11/25/2014 [facility] Hemoglobin A1c 5.9 % N Less than [address] (Glyco HGB) 6.0 [place] [address] [phone] Comp Metabolic 11/25/2014 [facility] Sodium 139 N 133-[address] mmol/[place] [address] [phone] Potassium 4.0 mmol/L N 3.5-5.0 Chloride 104 mmol/L N 101-111 Co2 Carbon Dioxide 29 mmol/L N 22-32 Anion Gap 6 mmol/L N 2-11 Glucose 117 mg/dL High 70-100 Blood Urea Nitrogen 10 mg/dL N 6-24 Creatinine 0.74 mg/dL N 0.51-0.95 BUN/Creatinine Ratio 13.5 N 8-20 Calcium 9.4 mg/dL N 8.6-10.3 Total Protein 6.6 g/dL N 6.4-8.9 Albumin 4.4 g/dL N 3.2-5.2 Globulin 2.2 g/dL N 2-4 Albumin/Globulin Ratio 2.0 N 1-3 Total Bilirubin 0.90 mg/dL N 0.2-1.0 Alkaline Phosphatase 43 U/L N 34-104 Alt 20 U/L N 7-52 Ast 23 U/L N 13-39 Egfr Non- 77.4 N >60 Egfr 99.5 N >60 33 Lipid Profile 11/25/2014 [facility] Triglycerides 192 mg/dL N 34 (Trig/Chol/HDL) [address] [place] [address] [phone] Cholesterol 289 mg/dL N 35 HDL Cholesterol 53.2 mg/dL N 36 LDL Cholesterol 197 mg/dL N 37 Lipid Profile 08/24/2013 [facility] Triglycerides 123 mg/dL N 38 (Trig/Chol/HDL) [address] [place] [address] [phone] Cholesterol 232 mg/dL N 39 HDL Cholesterol 59.0 mg/dL N 40 LDL Cholesterol 148 mg/dL N 41 Comp Metabolic Panel 08/24/2013 [facility] Sodium 136 mmol/L N 133-145 [address] [place] [address] [phone] Potassium 3.9 mmol/L N 3.7-5.6 Chloride 101 mmol/L N 101-111 Co2 Carbon Dioxide 27 mmol/L N 22-32 Anion Gap 8 mmol/L N 2-11 Glucose 102 mg/dL High 70-100 Blood Urea Nitrogen 21 mg/dL N 6-24 Creatinine 0.65 mg/dL N 0.51-0.95 BUN/Creatinine Ratio 32.3 High 8-20 Calcium 9.3 mg/dL N 8.6-10.3 Total Protein 6.4 g/dL N 6.4-8.9 Albumin 4.4 g/dL N 3.2-5.2 Globulin 2.0 g/dL N 2-4 Albumin/Globulin Ratio 2.2 N 1-3 Total Bilirubin 0.60 mg/dL N 0.2-1.0 Alkaline Phosphatase 41 U/L N 34-104 Alt 14 U/L N 7-52 Ast 14 U/L N 13-39 Egfr Non- 90.4 N >60 Egfr 116.2 N >60 42 Laboratory test 08/24/2013 [facility] Hemoglobin A1c 5.6 % N Less than [address] 6[address]0 [place] [address] [phone] Surgical 06/12/2013 [facility] S RUN [address] DATE: [place] [address] [phone] <SEE NOTE> CBC Auto Diff 05/07/2013 [facility] White Blood 4.5 Low 4.8- 10.8 DRIVE Count 10^3/[place] [address] [phone] Red Blood Count 4.45 10^6/uL 4.0-5.4 Hemoglobin 13.7 g/dL 12.0-16.0 Hematocrit 42 % 35-47 Mean Corpuscular Volume 94 fL 80-97 Mean Corpuscular Hemoglobin 31 pg 27-31 Mean Corpuscular HGB Conc 33 g/dL 31-36 Red Cell Distribution Width 13 % 10.5-15 Platelet Count 201 10^3/uL 150-450 Mean Platelet Volume 10 um3 7.4-10.4 Abs Neutrophils 2.2 10^3/uL 1.5-7.7 Abs Lymphocytes 1.7 10^3/uL 1.0-4.8 Abs Monocytes 0.4 10^3/uL 0-0.8 Abs Eosinophils 0.1 10^3/uL 0-0.6 Abs Basophils 0 10^3/uL 0-0.2 Abs Nucleated RBC 0 10^3/uL Granulocyte % 49.0 % 38-83 Lymphocyte % 37.7 % 25-47 Monocyte % 9.9 % High 1-9 Eosinophil % 2.4 % 0-6 Basophil % 1.0 % 0-2 Nucleated Red Blood Cells % 0 Type & Screen 05/07/2013 [facility] Patient Blood Type O Positive [address] [place] [address] [phone] Antibody Screen NEGATIVE Comp Metabolic Panel 05/07/2013 [facility] Sodium 137 mmol/L 133-[address] [place] [address] [phone] Potassium 3.9 mmol/L 3.5-5.0 Chloride 100 mmol/L Low 101-111 Co2 Carbon Dioxide 28.0 mmol/L 22-32 Anion Gap 9.0 mmol/L 2-11 Glucose 92 mg/dL 70-100 Blood Urea Nitrogen 18 mg/dL 6-24 Creatinine 0.70 mg/dL 0.50-1.40 BUN/Creatinine Ratio 25.7 High 8-20 Calcium 9.4 mg/dL 8.1-9.9 Total Protein 6.7 g/dL 6.2-8.1 Albumin 4.1 g/dL 3.2-5.2 Globulin 2.6 g/dL 2-4 Albumin/Globulin Ratio 1.6 1-3 Total Bilirubin 1.0 mg/dL 0.4-1.5 Alkaline Phosphatase 47 U/L 30-110 Alt 23 U/L 14-54 Ast 62 U/L High 12-42 Egfr Non- 83.0 >60 Egfr 106.7 >60 45 Laboratory test 03/30/2013 [facility] Surgical RUN DATE: [address] Pathology 04/01/ <[place] [address] NOTE> [phone] Comp Metabolic 03/24/2013 [facility] Sodium 137 mmol/L 133- [address] [place] [address] [phone] Potassium 3.4 mmol/L Low 3.5-5.0 Chloride 99 mmol/L Low 101-111 Co2 Carbon Dioxide 29.0 mmol/L 22-32 Anion Gap 9.0 mmol/L 2-11 Glucose 116 mg/dL High 70-100 Blood Urea Nitrogen 14 mg/dL 6-24 Creatinine 0.70 mg/dL 0.50-1.40 BUN/Creatinine Ratio 20.0 8-20 Calcium 9.1 mg/dL 8.1-9.9 Total Protein 6.2 g/dL 6.2-8.1 Albumin 4.2 g/dL 3.2-5.2 Globulin 2.0 g/dL 2-4 Albumin/Globulin Ratio 2.1 1-3 Total Bilirubin 0.8 mg/dL 0.4-1.5 Alkaline Phosphatase 49 U/L 30-110 Alt 26 U/L 14-54 Ast 21 U/L 12-42 Egfr Non- 83.0 >60 Egfr 106.7 >60 47 CBC Auto 03/24/2013 [facility] White Blood 4.2 10^3/uL Low 4.8 -10.[address] [place] [address] [phone] Red Blood Count 4.55 10^6/uL 4.0-5.4 Hemoglobin 14.6 g/dL 12.0-16.0 Hematocrit 42 % 35-47 Mean Corpuscular Volume 93 fL 80-97 Mean Corpuscular Hemoglobin 32 pg High 27-31 Mean Corpuscular HGB Conc 35 g/dL 31-36 Red Cell Distribution Width 13 % 10.5-15 Platelet Count 205 10^3/uL 150-450 Mean Platelet Volume 10 um3 7.4-10.4 Abs Neutrophils 2.2 10^3/uL 1.5-7.7 Abs Lymphocytes 1.5 10^3/uL 1.0-4.8 Abs Monocytes 0.5 10^3/uL 0-0.8 Abs Eosinophils 0.1 10^3/uL 0-0.6 Abs Basophils 0 10^3/uL 0-0.2 Abs Nucleated RBC 0 10^3/uL Granulocyte % 51.2 % 38-83 Lymphocyte % 34.9 % 25-47 Monocyte % 11.2 % High 1-9 Eosinophil % 1.7 % 0-6 Basophil % 1.0 % 0-2 Nucleated Red Blood Cells % 0.1 Urine Culture And 03/23/2013 [facility] Urine Culture (SEE NOTE ) [address] [place] [address] [phone] Ua Routine 03/23/2013 [facility] Ua Specific 1.010 [place] Ua PH 5 Ua Color yellow Ua Appera cloudy Ua WBC small Ua Protein neg Ua Glucose neg Ua Ketones neg Ua Bilirubin neg Ua Urobilinogen neg Ua Nitrite neg Ua Occult Blood large Laboratory test 11/01/2012 [facility] Hemoglobin A1c 6.1 % High Less than [address] 6[address]0 [place] [address] [phone] Lipid Profile 11/01/2012 [facility] Triglycerides 93 mg/dL 40 -200 (Trig/Chol/HDL) [address] [place] [address] [phone] Cholesterol 194 mg/dL Less than 200 HDL Cholesterol 67 mg/dL High 40-60 50 Cholesterol/HDL Ratio 2.9 Average 1-4.44 LDL Cholesterol 108.4 High Less Than 100 51 Basic Metabolic Panel 11/01/2012 [facility] Sodium 137 mmol/L 133-145 [address] [place] [address] [phone] Potassium 4.0 mmol/L 3.5-5.0 Chloride 103 mmol/L 101-111 Co2 Carbon Dioxide 29.0 mmol/L 22-32 Anion Gap 5.0 mmol/L 2-11 Glucose 96 mg/dL 70-100 Blood Urea Nitrogen 18 mg/dL 6-24 Creatinine 0.50 mg/dL 0.50-1.40 BUN/Creatinine Ratio 36.0 High 8-20 Calcium 9.2 mg/dL 8.1-9.9 Egfr Non- 122.3 >60 Egfr 157.3 >60 52 Lipid Profile 04/23/2012 [facility] Triglycerides 133 mg/dL 40-200 (Trig/Chol/HDL) [address] [place] [address] [phone] Cholesterol 219 mg/dL High Less than 200 HDL Cholesterol 68 mg/dL High 40-60 53 Cholesterol/HDL Ratio 3.2 Average 1-4.44 LDL Cholesterol 124.4 mg/dL High Less Than 100 54 Comp Metabolic Panel 04/23/2012 [facility] Sodium 138 mmol/L 133-145 [address] [place] [address] [phone] Potassium 4.0 mmol/L 3.5-5.0 Chloride 103 mmol/L 101-111 Co2 Carbon Dioxide 27.0 mmol/L 22-32 Anion Gap 8.0 mmol/L 2-11 Glucose 113 mg/dL High 70-100 Blood Urea Nitrogen 13 mg/dL 6-24 Creatinine 0.70 mg/dL 0.50-1.40 BUN/Creatinine Ratio 18.6 8-20 Calcium 9.3 mg/dL 8.1-9.9 Total Protein 6.2 g/dL 6.2-8.1 Albumin 4.1 g/dL 3.2-5.2 Globulin 2.1 g/dL 2-4 Albumin/Globulin Ratio 2.0 1-3 Total Bilirubin 0.8 mg/dL 0.4-1.5 Alkaline Phosphatase 39 U/L 30-110 Alt 34 U/L 14-54 Ast 25 U/L 12-42 Egfr Non- 83.2 >60 Egfr 107.0 >60 55 Laboratory test 04/23/2012 [facility] Vitamin B12 615 pg/mL 180-[address] [place] [address] [phone] CBC Auto Diff 04/23/2012 [facility] White Blood 4.2 Low 4.8- 10.[address] Count 10^3/[place] [address] [phone] Red Blood Count 4.42 10^6/uL 4.0-5.4 Hemoglobin 14.2 g/dL 12.0-16.0 Hematocrit 42 % 35-47 Mean Corpuscular Volume 95 fL 80-97 Mean Corpuscular Hemoglobin 32 pg High 27-31 Mean Corpuscular HGB Conc 34 g/dL 31-36 Red Cell Distribution Width 13 % 10.5-15 Platelet Count 204 10^3/uL 150-450 Mean Platelet Volume 10 um3 7.4-10.4 Abs Neutrophils 2.2 10^3/uL 1.5-7.7 Abs Lymphocytes 1.5 10^3/uL 1.0-4.8 Abs Monocytes 0.4 10^3/uL 0-0.8 Abs Eosinophils 0.1 10^3/uL 0-0.6 Abs Basophils 0 10^3/uL 0-0.2 Abs Nucleated RBC 0 10^3/uL Granulocyte % 52.2 % 38-83 Lymphocyte % 34.9 % 25-47 Monocyte % 9.2 % High 1-9 Eosinophil % 2.5 % 0-6 Basophil % 1.2 % 0-2 Nucleated Red Blood Cells % 0 Lipid Profile 06/02/2011 [facility] Triglyceride 68 mg/dL 40- 200 (Trig/Chol/HDL) [address] [place] [address] [phone] Cholesterol 178 mg/dL Less Than 200 56 High Density Lipoprotein 83 mg/dL High 40-60 57 Cholesterol/HDL Ratio 2.14 AVERAGE 1-4.44 Low Density Lipoprotein 81 mg/dL Less Than 100 58 Laboratory test finding 06/02/2011 [facility] Alt (SGPT) 27 U/L 14-[address] [place] [address] [phone] Ast (Sgot) 23 U/L 12-42 Laboratory test 04/11/2011 [facility] Vitamin B12 407 pg/mL 180-[address] [place] [address] [phone] Comp Metabolic 04/11/2011 [facility] Sodium 141 mmol/L 135- 145 Panel [address] [place] [address] [phone] Potassium 4.1 mmol/L 3.5-5.0 Chloride 100 mmol/L Low 101-111 Co2 (Carbon Dioxide) 33.0 mmol/L High 22-32 Anion Gap 8.0 mmol/L 2-11 59 Glucose 100 mg/dL 70-100 BUN 18 mg/dL 6-24 Creatinine 0.7 mg/dL 0.50-1.40 One Over Creatinine 1.42 BUN/Creatinine Ratio 25.7 High 8-20 Calcium 9.3 mg/dL 8.1-9.9 Total Protein 6.7 GM/DL 6.2-8.1 Albumin 4.5 GM/DL 3.2-5.2 Globulin 2.2 GM/DL 2-4 Albumin/Globulin Ratio 2.0 1-3 Bilirubin Total 1.0 mg/dL 0.4-1.5 60 Alkaline Phosphatase 51 U/L 30-110 Alt (SGPT) 38 U/L 14-54 Ast (Sgot) 29 U/L 12-42 eGFR Non- 83.5 > 60 eGFR 107.3 > 60 61 Laboratory test 04/11/2011 [facility] C Reactive 0.5 mg/L Less Than 62 finding 101 Protein High 3 [place] [address] Sensit [phone] Lipid Panel 04/11/2011 [facility] Triglyceride 128 mg/dL 40- [address] [place], [place] [id number] [phone] Cholesterol 295 mg/dL High Less Than 200 63 High Density Lipoprotein 85 mg/dL High 40-60 64 Cholesterol/HDL Ratio 3.47 AVERAGE 1-4.44 Low Density Lipoprotein 184 mg/dL High Less Than 100 65 Lipid Profile 09/21/2010 [facility] Triglyceride 136 mg/dL 40 -200 (Trig/Chol/HDL) [address] [place] [address] [phone] Cholesterol 205 mg/dL High Less Than 200 66 High Density Lipoprotein 69 mg/dL High 40-60 67 Cholesterol/HDL Ratio 2.97 AVERAGE 1-4.44 Low Density Lipoprotein 109 mg/dL High Less Than 100 68 Laboratory test finding 09/21/2010 [facility] Alt (SGPT) 22 U/L 14-54 [address] [place] [address] [phone] Ast (Sgot) 23 U/L 12-42 Lipid Profile 05/10/2010 [facility] Triglyceride 93 mg/dL 40- 200 (Trig/Chol/HDL) [address] [place] [address] [phone] Cholesterol 210 mg/dL High Less Than 200 69 High Density Lipoprotein 72 mg/dL High 40-60 70 Cholesterol/HDL Ratio 2.92 AVERAGE 1-4.44 Low Density Lipoprotein 119 mg/dL High Less Than 100 71 Comp Metabolic Panel 05/10/2010 [facility] Sodium 139 mmol/L 135-145 [address] [place] [address] [phone] Potassium 3.8 mmol/L 3.5-5.0 Chloride 103 mmol/L 101-111 Co2 (Carbon Dioxide) 30.0 mmol/L 22-32 Anion Gap 6.0 mmol/L 2-11 72 Glucose 101 mg/dL High 70-100 BUN 13 mg/dL 6-24 Creatinine 0.70 mg/dL 0.50-1.40 One Over Creatinine 1.40 BUN/Creatinine Ratio 18.6 8-20 Calcium 9.3 mg/dL 8.1-9.9 Total Protein 6.3 GM/DL 6.2-8.1 Albumin 4.3 GM/DL 3.2-5.2 Globulin 2.0 GM/DL 2-4 Albumin/Globulin Ratio 2.2 1-3 Bilirubin Total 1.1 mg/dL 0.4-1.5 73 Alkaline Phosphatase 37 U/L 30-110 Alt (SGPT) 19 U/L 14-54 Ast (Sgot) 22 U/L 12-42 eGFR Non- 89.0 > 60 eGFR 107.7 > 60 74 Laboratory test 10/07/2009 [facility] BUN 14 mg/dL 6-24 finding [address] [place] [address] [phone] Laboratory test 10/04/2009 [facility] Hemoglobin A1c 6.0 % Less Than [address] 6[address]0 [place], [place] [id number] [phone] Vitamin B12 262 pg/mL 180-914 TSH 0.81 MIU/ML 0.34-5.60 CBC With 10/04/2009 [facility] White Blood 4.2 CUMM Low 4.8- 10.8 Electronic Diff [address] [place] [address] [phone] Red Cell Count 4.26 CUMM 4.2-5.4 Hemoglobin 13.7 g/dL 12.0-16.0 Hematocrit 41 % 35-47 Mean Corpuscular Volume 95 um3 79-97 Mean Corpuscular Hemoglob 32 pg High 27-31 Mean Corpuscular HGB Cone 34 g/dL 32-36 Redcell Distribution WDTH 13 % 10.5-15 Platelet Count 192 CUMM 150-450 Mean Platelet Volume 9.9 um3 7.4-10.4 Gran % 48.5 % 38-83 Lymph % 37.2 % 25-47 Mononuclear % 9.8 % High 1-9 Eosinophil % 3.6 % 0-6 Basophil % 0.9 % 0-2 Abs Lymphs 1.6 1.0-4.8 Abs Mononuclear 0.4 0-0.8 Absolute Neutrophil Count 2.1 1.5-7.7 Abs Eosinophils 0.2 0-0.6 Abs Basophils 0 0-0.2 1 Desirable: <150 Borderline High: 150-199 High: 200-499 Very High: >500 2 Desirable: <200 Borderline High: 200-239 High: >239 3 Low: <40 Desirable: 40-60 High: >60 4 Desirable: <100 Near Optimal: 100-129 Borderline High: 130-159 High: 160-189 Very High: >189 5 Because ethnic data is not always readily available, this report includes an eGFR for both -Americans and non- Americans. The National Kidney Disease Education Program (NKDEP) does not endorse the use of the MDRD equation for patients that are not between the ages of 18 and 70, are , have extremes of body size, muscle mass, or nutritional status, or are non- or non-. According to the National Kidney Foundation, irrespective of diagnosis, the stage of the disease is based on the level of kidney function: Stage Description GFR(mL/min/1.73 m(2)) 1 Kidney damage with normal or decreased GFR 90 2 Kidney damage with mild decrease in GFR 60-89 3 Moderate decrease in GFR 30-59 4 Severe decrease in GFR 15-29 5 Kidney failure <15 (or dialysis) 6 Troponin-I testing on Plasma Separator Tubes (PST) has a known false positive rate of 0.20-0.40%. All positive troponins reflex immediate secondary confirmatory testing. 7 Troponin-I testing on Plasma Separator Tubes (PST) has a known false positive rate of 0.20-0.40%. All positive troponins reflex immediate secondary confirmatory testing. 8 Because ethnic data is not always readily available, this report includes an eGFR for both -Americans and non- Americans. The National Kidney Disease Education Program (NKDEP) does not endorse the use of the MDRD equation for patients that are not between the ages of 18 and 70, are , have extremes of body size, muscle mass, or nutritional status, or are non- or non-. According to the National Kidney Foundation, irrespective of diagnosis, the stage of the disease is based on the level of kidney function: Stage Description GFR(mL/min/1.73 m(2)) 1 Kidney damage with normal or decreased GFR 90 2 Kidney damage with mild decrease in GFR 60-89 3 Moderate decrease in GFR 30-59 4 Severe decrease in GFR 15-29 5 Kidney failure <15 (or dialysis) 9 *Ascorbic acid is present which may interfere with detection of blood. 10 Please note: The following may produce a false positive D Dimer test: - Rheumatoid factor greater than 60 IU/ml - Plasma hemoglobin greater than 0.05 gm/dl - Bilirubin greater than 50 mg/dl - Lipids greater than 1000 mg/dl - FDP greater than 20 ug/ml 11 [facility] Severe Sepsis and Septic Shock Management Bundle Measure requires all lactic acids initially measuring >2.0 mmol/L be repeated. 12 Acute inflammation: >10.00 13 Serologic response to B. burgdorferi infection is not detected, but cannot rule out early infection during which low or undetectable antibody levels to B. burgdorferi may be present. If clinically indicated, a new serum specimen should be submitted in 7-14 days. Test Performed by: [address] [address] 14 Desirable <150 Borderline high 150-199 High 200-499 Very High >500 15 Desirable <200 Borderline high 200-239 High >239 16 Low <40 Desirable: 40-60 High: >60 17 Desirable: <100 mg/dL Near Optimal: 100-129 mg/dL Borderline High: 130-159 mg/dL High: 160-189 mg/dL Very High: >189 mg/dL 18 Because ethnic data is not always readily available, this report includes an eGFR for both -Americans and non- Americans. The National Kidney Disease Education Program (NKDEP) does not endorse the use of the MDRD equation for patients that are not between the ages of 18 and 70, are , have extremes of body size, muscle mass, or nutritional status, or are non- or non-. According to the National Kidney Foundation, irrespective of diagnosis, the stage of the disease is based on the level of kidney function: Stage Description GFR(mL/min/1.73 m(2)) 1 Kidney damage with normal or decreased GFR 90 2 Kidney damage with mild decrease in GFR 60-89 3 Moderate decrease in GFR 30-59 4 Severe decrease in GFR 15-29 5 Kidney failure <15 (or dialysis) 19 Because ethnic data is not always readily available, this report includes an eGFR for both -Americans and non- Americans. The National Kidney Disease Education Program (NKDEP) does not endorse the use of the MDRD equation for patients that are not between the ages of 18 and 70, are , have extremes of body size, muscle mass, or nutritional status, or are non- or non-. According to the National Kidney Foundation, irrespective of diagnosis, the stage of the disease is based on the level of kidney function: Stage Description GFR(mL/min/1.73 m(2)) 1 Kidney damage with normal or decreased GFR 90 2 Kidney damage with mild decrease in GFR 60-89 3 Moderate decrease in GFR 30-59 4 Severe decrease in GFR 15-29 5 Kidney failure <15 (or dialysis) 20 Please note: The following may produce a false positive D Dimer test: - Rheumatoid factor greater than 60 IU/ml - Plasma hemoglobin greater than 0.05 gm/dl - Bilirubin greater than 50 mg/dl - Lipids greater than 1000 mg/dl - FDP greater than 20 ug/ml 21 PAIN IN LEFT KNEE, UNILATERAL PRIMARY OSTEOARTHRIT 22 SEE RESULT BELOW Name: MAHENDRA HUBBARD Josh : [address]: Jaja Stiles MD Acct: [id number] Unit: [id number] AGE: 70 Location: PAT Re03/07/16 SEX: F Status: REG REF SPEC: [id number] KEVON: 03/07/16 [facility] [address]: Jaja Stiles MD REQ: [id number] RECD: 03/07/16 STATUS: COMP _ SOURCE: URINE SPDESC: ORDERED: Urine Culture QUERIES: Urine Source: Clean Catch Procedure Result Reported Site Urine Culture Final 03/08/16- 0834 ML No growth of clinically significant organisms * ML - MAIN LAB ([facility]) . END OF REPORT * ML=Testing performed at Main Lab DEPARTMENT OF PATHOLOGY, [address] [place] [address] Eugene Rendon M.D. Director [facility] # [id number] 23 Because ethnic data is not always readily available, this report includes an eGFR for both -Americans and non- Americans. The National Kidney Disease Education Program (NKDEP) does not endorse the use of the MDRD equation for patients that are not between the ages of 18 and 70, are , have extremes of body size, muscle mass, or nutritional status, or are non- or non-. According to the National Kidney Foundation, irrespective of diagnosis, the stage of the disease is based on the level of kidney function: Stage Description GFR(mL/min/1.73 m(2)) 1 Kidney damage with normal or decreased GFR 90 2 Kidney damage with mild decrease in GFR 60-89 3 Moderate decrease in GFR 30-59 4 Severe decrease in GFR 15-29 5 Kidney failure <15 (or dialysis) 24 Therapeutic target for the treatment of diabetes Mellitus patients is <7% HBA1C, and in selective patients <6.0%.Please refer to [place] [employer] Diabetic care guidelines for further information. 25 PT IS FASTING 26 Therapeutic target for the treatment of diabetes Mellitus patients is <7% HBA1C, and in selective patients <6.0%.Please refer to [place] [employer] Diabetic care guidelines for further information. 27 Because ethnic data is not always readily available, this report includes an eGFR for both -Americans and non- Americans. The National Kidney Disease Education Program (NKDEP) does not endorse the use of the MDRD equation for patients that are not between the ages of 18 and 70, are , have extremes of body size, muscle mass, or nutritional status, or are non- or non-. According to the National Kidney Foundation, irrespective of diagnosis, the stage of the disease is based on the level of kidney function: Stage Description GFR(mL/min/1.73 m(2)) 1 Kidney damage with normal or decreased GFR 90 2 Kidney damage with mild decrease in GFR 60-89 3 Moderate decrease in GFR 30-59 4 Severe decrease in GFR 15-29 5 Kidney failure <15 (or dialysis) 28 Desirable <150 Borderline high 150-199 High 200-499 Very High >500 29 Desirable <200 Borderline high 200-239 High >239 30 Low <40 Desirable: 40-60 High: >60 31 Desirable: <100 mg/dL Near Optimal: 100-129 mg/dL Borderline High: 130-159 mg/dL High: 160-189 mg/dL Very High: >189 mg/dL 32 Therapeutic target for the treatment of diabetes Mellitus patients is <7% HBA1C, and in selective patients <6.0%.Please refer to [place] [employer] Diabetic care guidelines for further information. 33 Because ethnic data is not always readily available, this report includes an eGFR for both -Americans and non- Americans. The National Kidney Disease Education Program (NKDEP) does not endorse the use of the MDRD equation for patients that are not between the ages of 18 and 70, are , have extremes of body size, muscle mass, or nutritional status, or are non- or non-. According to the National Kidney Foundation, irrespective of diagnosis, the stage of the disease is based on the level of kidney function: Stage Description GFR(mL/min/1.73 m(2)) 1 Kidney damage with normal or decreased GFR 90 2 Kidney damage with mild decrease in GFR 60-89 3 Moderate decrease in GFR 30-59 4 Severe decrease in GFR 15-29 5 Kidney failure <15 (or dialysis) 34 Desirable <150 Borderline high 150-199 High 200-499 Very High >500 35 Desirable <200 Borderline high 200-239 High >239 36 Low <40 Desirable: 40-60 High: >60 37 Desirable: <100 mg/dL Near Optimal: 100-129 mg/dL Borderline High: 130-159 mg/dL High: 160-189 mg/dL Very High: >189 mg/dL 38 Desirable <150 Borderline high 150-199 High 200-499 Very High >500 39 Desirable <200 Borderline high 200-239 High >239 40 Low <40 Desirable: 40-60 High: >60 41 Desirable <100 Near Optimal 100-129 Borderline high 130-159 High 160-189 Very High >189 42 Because ethnic data is not always readily available, this report includes an eGFR for both -Americans and non- Americans. The National Kidney Disease Education Program (NKDEP) does not endorse the use of the MDRD equation for patients that are not between the ages of 18 and 70, are , have extremes of body size, muscle mass, or nutritional status, or are non- or non-. According to the National Kidney Foundation, irrespective of diagnosis, the stage of the disease is based on the level of kidney function: Stage Description GFR(mL/min/1.73 m(2)) 1 Kidney damage with normal or decreased GFR 90 2 Kidney damage with mild decrease in GFR 60-89 3 Moderate decrease in GFR 30-59 4 Severe decrease in GFR 15-29 5 Kidney failure <15 (or dialysis) 43 Therapeutic target for the treatment of diabetes Mellitus patients is <7% HBA1C, and in selective patients <6.0%.Please refer to [place] [employer] Diabetic care guidelines for further information. 44 RUN DATE: 06/16/13 [facility] LAB LIVE PAGE 1 RUN TIME: [address] [place] [address] Specimen Inquiry Name: MAHENDRA HUBBARD : [address]: Thompson Cyr MD Acct: [id number] Unit: [id number] AGE: 67 Location: ENDO Re06/12/13 SEX: F Status: REG REF SPEC: [id number] KEVON: 06/12/13- [facility] DR: Thompson Cyr MD REQ: [id number] RECD: 06/12/13 STATUS: RAMOS KIDD DR: Damaris Menendez MD _ ORDERED: LEVEL IV FINAL DIAGNOSIS Colon, descending at 60 cm., biopsy: A. Tubular adenoma. B. No high grade dysplasia or malignancy. CLINICAL HISTORY Screening colonoscopy, no symptoms, no family history. C-sections, to have hysterectomy 06/16/13 for atypical hyperplasia. POST-OPERATIVE DIAGNOSIS Screening colonoscopy to cecum, difficult with loops, one nodule at est mid descending - appears benign. Conclusion: Right colon diverticulosis, descending colon nodule, 3 1/2 years. GROSS DESCRIPTION The specimen is received in formalin labeled Mahendra Hubbard, Biopsy Mid Descending Colon Nodule at 60 cm. and consists of a 0.6 x 0.5 x 0.2 cm. casillas-white, irregular, soft tissue fragment. Submitted entirely, one cassette. Signed (signature on file) Eugene Rendon MD 1538 END OF REPORT * ML=Testing performed at Main Lab DEPARTMENT OF PATHOLOGY, [address] [place] [id number] Eugene Rendon M.D. Director [facility] Permit #[id number] 45 Because ethnic data is not always readily available, this report includes an eGFR for both -Americans and non- Americans. The National Kidney Disease Education Program (NKDEP) does not endorse the use of the MDRD equation for patients that are not between the ages of 18 and 70, are , have extremes of body size, muscle mass, or nutritional status, or are non- or non-. According to the National Kidney Foundation, irrespective of diagnosis, the stage of the disease is based on the level of kidney function: Stage Description GFR(mL/min/1.73 m(2)) 1 Kidney damage with normal or decreased GFR 90 2 Kidney damage with mild decrease in GFR 60-89 3 Moderate decrease in GFR 30-59 4 Severe decrease in GFR 15-29 5 Kidney failure <15 (or dialysis) 46 RUN DATE: 04/01/13 [facility] LAB LIVE PAGE 1 RUN TIME: [address] [place] [address] Specimen Inquiry Name: MAHENDRA HUBBARD : [address]: Allison Wiggins NP Acct: [id number] Unit: [id number] AGE: 67 Location: [facility] Re03/30/13 SEX: F Status: REG REF SPEC: [id number] KEVON: 03/30/13-[address] [facility] [address]: Allison Wiggins NP REQ: [id number] RECD: 03/30/13 STATUS: SOUT _ ORDERED: LEVEL IV FINAL DIAGNOSIS Uterus, endometrium, biopsy: A. Abundant blood and scattered benign strips of predominantly atrophic endometrial mucosa with extensive tubal metaplasia. B. No evidence of hyperplasia or neoplasia. CLINICAL HISTORY No history given GROSS DESCRIPTION The specimen is received in formalin labeled [facility], Endometrial Biopsy , and consists of multiple portions of casillas-red vermiform tissue that in aggregate measures 3.0 x 2.5 x 0.3 cm. Submitted entirely, one cassette. Signed (signature on file) Zohra Storey MD 1804 END OF REPORT * ML=Testing performed at Main Lab DEPARTMENT OF PATHOLOGY, [address] [place] [address] Eugene Rendon M.D. Director [facility] Permit #[id number] 47 Because ethnic data is not always readily available, this report includes an eGFR for both -Americans and non- Americans. The National Kidney Disease Education Program (NKDEP) does not endorse the use of the MDRD equation for patients that are not between the ages of 18 and 70, are , have extremes of body size, muscle mass, or nutritional status, or are non- or non-. According to the National Kidney Foundation, irrespective of diagnosis, the stage of the disease is based on the level of kidney function: Stage Description GFR(mL/min/1.73 m(2)) 1 Kidney damage with normal or decreased GFR 90 2 Kidney damage with mild decrease in GFR 60-89 3 Moderate decrease in GFR 30-59 4 Severe decrease in GFR 15-29 5 Kidney failure <15 (or dialysis) 48 RUN DATE: 03/25/13 [facility] LAB LIVE PAGE 1 RUN TIME: [address] [place] [phone] Specimen Inquiry Name: MAHENDRA HUBBARD Josh : [address]: Damaris Menendez MD Acct: [id number] Unit: [id number] AGE: 67 Location: [facility] Re03/23/13 SEX: F Status: REG REF SPEC: [id number] KEVON: 03/23/13-17[address] [facility] [address]: Damaris Menendez MD REQ: [id number] RECD: 03/23/13 STATUS: COMP _ SOURCE: URINE SPDESC: ORDERED: Urine Culture QUERIES: Medent Number [id number] Procedure Result Verified Site Urine Culture Final 03/25/13- 26 ML Organism 1 NORMAL YOON [place] Count 25-50,000 (Moderate) CFU/ML END OF REPORT * ML=Testing performed at Main Lab DEPARTMENT OF PATHOLOGY, [address] [place] [address] Eugene Rendon M.D. Director [facility] Permit #[id number] 49 Therapeutic target for the treatment of diabetes Mellitus patients is <7% HBA1C, and in selective patients <6.0%.Please refer to [place] [employer] Diabetic care guidelines for further information. 50 HDL Interpretation: Undesirable: High Risk: Less than 40 mg/dL Desirable: Low Risk: Greater than 60 mg/dL 51 LDL Interpretation: Low Risk Optimal Level: LDL Less than 100 mg/dL Near or Above Optimal: LDL 100-129 mg/dL Borderline High Risk: LDL 130-159 mg/dL High Risk: LDL 160-189 mg/dL Very High Risk: LDL Greater than 189 mg/dL 52 Because ethnic data is not always readily available, this report includes an eGFR for both -Americans and non- Americans. The National Kidney Disease Education Program (NKDEP) does not endorse the use of the MDRD equation for patients that are not between the ages of 18 and 70, are , have extremes of body size, muscle mass, or nutritional status, or are non- or non-. According to the National Kidney Foundation, irrespective of diagnosis, the stage of the disease is based on the level of kidney function: Stage Description GFR(mL/min/1.73 m(2)) 1 Kidney damage with normal or decreased GFR 90 2 Kidney damage with mild decrease in GFR 60-89 3 Moderate decrease in GFR 30-59 4 Severe decrease in GFR 15-29 5 Kidney failure <15 (or dialysis) 53 HDL Interpretation: Undesirable: High Risk: Less than 40 MG/DL Desirable: Low Risk: Greater than 60 MG/DL 54 LDL Interpretation: Low Risk Optimal Level: LDL Less than 100 MG/DL Near or Above Optimal: LDL 100-129 MG/DL Borderline High Risk: LDL 130-159 MG/DL High Risk: LDL 160-189 MG/DL Very High Risk: LDL Greater than 189 MG/DL 55 Because ethnic data is not always readily available, this report includes an eGFR for both -Americans and non- Americans. The National Kidney Disease Education Program (NKDEP) does not endorse the use of the MDRD equation for patients that are not between the ages of 18 and 70, are , have extremes of body size, muscle mass, or nutritional status, or are non- or non-. According to the National Kidney Foundation, irrespective of diagnosis, the stage of the disease is based on the level of kidney function: Stage Description GFR(mL/min/1.73 m(2)) 1 Kidney damage with normal or decreased GFR 90 2 Kidney damage with mild decrease in GFR 60-89 3 Moderate decrease in GFR 30-59 4 Severe decrease in GFR 15-29 5 Kidney failure <15 (or dialysis) 56 CHOLESTEROL INTERPRETATION: Desirable: Less than 200 MG/DL Borderline-High Risk: 200-239 MG/DL High-Risk: 240 MG/DL and over 57 HDL INTERPRETATION: Undesirable: High Risk: Less than 40 MG/DL Desirable: Low Risk: Greater than 60 MG/DL 58 LDL INTERPRETATION: Low Risk Optimal Level: LDL Less than 100 MG/DL Near or Above Optimal: LDL 100-129 MG/DL Borderline High Risk: LDL 130-159 MG/DL High Risk: LDL 160-189 MG/DL Very High Risk: LDL Greater than 189 MG/DL 59 Anion gap measurement may be of limited value in the presence of any alkalosis, especially in a combined acid base disorder. . 60 A metabolite of Naproxen, O-desmethylnaproxen, has been shown to interfere with the Jendrassik-Mee method for measuring total bilirubin. Samples from patients who have taken Naproxen have shown spurious elevation in total bilirubin levels. 61 Because ethnic data is not always readily available, this report includes an eGFR for both -Americans and non- Americans. The National Kidney Disease Education Program (NKDEP) does not endorse the use of the MDRD equation for patients that are not between the ages of 18 and 70, are , have extremes of body size, muscle mass, or nutritional status, or are non- or non-. According to the National Kidney Foundation, irrespective of diagnosis, the stage of the disease is based on the level of kidney function: Stage Description GFR(mL/min/1.73 m(2)) 1 Kidney damage with normal or decreased GFR 90 2 Kidney damage with mild decrease in GFR 60-89 3 Moderate decrease in GFR 30-59 4 Severe decrease in GFR 15-29 5 Kidney failure <15 (or dialysis) 62 Less Than 1.0......Low Risk of Cardiovascular Disease 1.0-3.0............Medium Risk (<2 Fold Increase) Greater Than 3.0...High Risk (Approximately 2-Fold Increase) 63 CHOLESTEROL INTERPRETATION: Desirable: Less than 200 MG/DL Borderline-High Risk: 200-239 MG/DL High-Risk: 240 MG/DL and over 64 HDL INTERPRETATION: Undesirable: High Risk: Less than 40 MG/DL Desirable: Low Risk: Greater than 60 MG/DL 65 LDL INTERPRETATION: Low Risk Optimal Level: LDL Less than 100 MG/DL Near or Above Optimal: LDL 100-129 MG/DL Borderline High Risk: LDL 130-159 MG/DL High Risk: LDL 160-189 MG/DL Very High Risk: LDL Greater than 189 MG/DL 66 CHOLESTEROL INTERPRETATION: Desirable: Less than 200 MG/DL Borderline-High Risk: 200-239 MG/DL High-Risk: 240 MG/DL and over 67 HDL INTERPRETATION: Undesirable: High Risk: Less than 40 MG/DL Desirable: Low Risk: Greater than 60 MG/DL 68 LDL INTERPRETATION: Low Risk Optimal Level: LDL Less than 100 MG/DL Near or Above Optimal: LDL 100-129 MG/DL Borderline High Risk: LDL 130-159 MG/DL High Risk: LDL 160-189 MG/DL Very High Risk: LDL Greater than 189 MG/DL 69 CHOLESTEROL INTERPRETATION: Desirable: Less than 200 MG/DL Borderline-High Risk: 200-239 MG/DL High-Risk: 240 MG/DL and over 70 HDL INTERPRETATION: Undesirable: High Risk: Less than 40 MG/DL Desirable: Low Risk: Greater than 60 MG/DL 71 LDL INTERPRETATION: Low Risk Optimal Level: LDL Less than 100 MG/DL Near or Above Optimal: LDL 100-129 MG/DL Borderline High Risk: LDL 130-159 MG/DL High Risk: LDL 160-189 MG/DL Very High Risk: LDL Greater than 189 MG/DL 72 Anion gap measurement may be of limited value in the presence of any alkalosis, especially in a combined acid base disorder. . 73 A metabolite of Naproxen, O-desmethylnaproxen, has been shown to interfere with the J[place]rassik-[place] method for measuring total bilirubin. Samples from patients who have taken Naproxen have shown spurious elevation in total bilirubin levels. 74 Because ethnic data is not always readily available, this report includes an eGFR for both -Americans and non- Americans. The National Kidney Disease Education Program (NKDEP) does not endorse the use of the MDRD equation for patients that are not between the ages of 18 and 70, are , have extremes of body size, muscle mass, or nutritional status, or are non- or non-. According to the National Kidney Foundation, irrespective of diagnosis, the stage of the disease is based on the level of kidney function: Stage Description GFR(mL/min/1.73 m(2)) 1 Kidney damage with normal or decreased GFR 90 2 Kidney damage with mild decrease in GFR 60-89 3 Moderate decrease in GFR 30-59 4 Severe decrease in GFR 15-29 5 Kidney failure <15 (or dialysis) 75 THERAPEUTIC TARGET FOR THE TREATMENT OF DIABETES MELLITUS PATIENTS IS <7% HBA1C, AND IN SELECTIVE PATIENTS <6.0%. PLEASE REFER TO [place] [employer] DIABETIC CARE GUIDELINES FOR FURTHER INFORMATION. Procedures Date Code Description Status 05/22/2018 68578 ECG Monitor/Recording W/Visual Superimposition Completed Scanning 03/26/2018 [id number] Mammogram Completed 04/02/2017 65608 Repair Complex Wound 2.6-7.5CM Trunk Completed 04/02/2017 46089 Excise Benign Lesion > 4CM Trunk/Arm/Leg Completed 09/26/2016 [id number] Mammogram Completed 03/20/2016 73616 TKR Total Knee Replacement Completed 03/20/2016 64099 TKR Total Knee Replacement Completed 03/18/2016 90158 EKG, Interpretation Only Completed 03/16/2016 59874 Left Heart Cath. Incl S/I Coronaries, Angio S/I V Gram Completed If Done 03/16/2016 16989 EKG, Interpretation Only Completed 03/15/2016 43364 ECHO Transthorasic Realtime 2D W Doppler & Color Flow Completed Hosp 03/15/2016 83521 EKG, Interpretation Only Completed 03/15/2016 28279 TKR Total Knee Replacement Completed 03/15/2016 45283 TKR Total Knee Replacement Completed 03/01/2016 74408 ECHO Transthoracic, Real-Time 2D With Doppler And Completed Color Flow 02/27/2016 54706 ECHO Transthoracic, Real-Time 2D With Doppler And Completed Color Flow 02/23/2016 50857 ECHO Transthoracic, Real-Time 2D With Doppler And Completed Color Flow 02/22/2016 19095 EKG Tracing & Interpretation Completed 02/10/2016 095670092 Diabetic Retinal Eye Exam Completed 12/22/2015 525362310 Diabetic Retinal Eye Exam Completed 01/27/2015 16234 Inject Tendon Sheath Or Ligament Aponeurosis Eg Completed Plantar Fascia 11/26/2014 50905222 Mammogram Completed 06/12/2013 38042576 Colonoscopy Completed 03/30/2013 26976 Endometrial Sampling W Or W/O Endocervical BX W Or W/O Completed Cerv Dilat 11/28/2011 26102985 Mammogram Completed 10/18/2011 11082 EKG Tracing & Interpretation Completed 08/06/2011 33945 EKG Tracing & Interpretation Completed 10/25/2010 66192650 Mammogram Completed 10/13/2010 58461 Inject/Drain Joint/Bursa Major W/O US Completed 09/29/2010 86806 Rad Exam; Knee, Ap&L Completed 09/29/2010 24537 Xray Knee 3 Views Completed 12/08/2008 54234 Endometrial Sampling W Or W/O Endocervical BX W Or W/O Completed Cerv Dilat 07/13/2008 136556961 Bone Mineral Density Test Completed 07/13/2008 20676889 Mammogram Completed 11/24/2007 82761 Endometrial Sampling W Or W/O Endocervical BX W Or W/O Completed Cerv Dilat 11/24/2007 40249 Endometrial Sampling W Or W/O Endocervical BX W Or W/O Completed Cerv Dilat 06/24/2007 54591 EKG Tracing & Interpretation Completed 06/24/2007 19269 EKG Tracing & Interpretation Completed 08/07/2006 99056 EKG Tracing & Interpretation Completed 06/27/2006 68630 EKG Tracing & Interpretation Completed 06/27/2006 04118 EKG Tracing & Interpretation Completed Encounters Type Date Location Provider Dx Diagnosis Office Visit 05/22/2018 [facility] Damaris Cotton, R42 Dizziness and 1:00p Medicine Nicolasa giddiness R00.2 Palpitations Office Visit 09/02/2017 9:00a Orthopedic Dirk Peter, M25.662 Stiffness of left Services Of M.D. knee, not C.M.A. elsewhere classified Z96.652 Presence of left artificial knee joint Office Visit 08/26/2017 10:45a Orthopedic Services Jaja Stiles, M25.562 Pain in left Of C.M.A. M.D. knee M25.462 Effusion, left knee Z96.652 Presence of left artificial knee joint Office Visit 06/14/2017 11:30a Orthopedic Services Jaja Stiles, M25.562 Pain in left Of C.M.A. M.D. knee M25.462 Effusion, left knee Z96.652 Presence of left artificial knee joint Office Visit 04/17/2017 2:30p [facility] D[facility] Sterling Reed MD L85.3 Xerosis cutis D23.71 Oth benign neoplasm skin/ right lower limb, including hip Z48.02 Encounter for removal of sutures Office Visit 03/29/2017 11:00a [facility] Sterling Reed MD L72.0 Epidermal cyst Office Visit 10/25/2016 10:40a [facility] Damaris R25.2 Cramp and spasm Medicine Nicolasa Menendez I10 Essential (primary) hypertension L60.3 Nail dystrophy Office Visit 08/27/2016 11:15a Orthopedic Jaja Go, Z96.652 Presence of left Services Of M.D. artificial knee C.M.A. joint M25.562 Pain in left knee M25.462 Effusion, left knee Office Visit 05/21/2016 9:20a [facility] Damaris F43.20 Adjustment Medicine Nicolasa Menendez disorder, unspecified Office Visit 04/03/2016 1:20p [facility] Damaris I82.492 Acute embolism Medicine Nicolasa Menendez and thrombosis of deep vein of l low extrem K59.00 Constipation, unspecified Office Visit 03/22/2016 9:05a [facility] Desi Edgar I45.5 Other specified Assoc,pc N.PDarryl heart block Hospitalists I10 Essential (primary) hypertension E78.5 Hyperlipidemia, unspecified Z96.652 Presence of left artificial knee joint Office Visit 03/21/2016 9:05a [facility] I45.5 Other specified Assoc,pc BALAJI Fishman heart block Hospitalists I10 Essential (primary) hypertension E78.5 Hyperlipidemia, unspecified Z96.652 Presence of left artificial knee joint Office Visit 03/20/2016 9:04a [facility] I45.5 Other specified Assoc,christina Fishman NP heart block Hospitalists I10 Essential (primary) hypertension E78.5 Hyperlipidemia, unspecified Office Visit 03/19/2016 9:02a [facility] I45.5 Other specified Assoc,christina Fishman NP heart block Hospitalists I10 Essential (primary) hypertension E78.5 Hyperlipidemia, unspecified Office Visit 03/18/2016 9:01a [facility] I45.5 Other specified Assoc,christina Gaona NP heart block Hospitalists I10 Essential (primary) hypertension E78.5 Hyperlipidemia, unspecified Office Visit 03/18/2016 2:31p [facility] Heriberto Vicente I46.9 Cardiac arrestPrecious M.D. cause unspecified Office Visit 03/17/2016 2:34p [facility] Heriberto Vicente I46.9 Cardiac arrest, Nicolasa Lang cause unspecified Office Visit 03/17/2016 9:00a [facility] Khadar I45.5 Other specified Assoc,pc Yovanny-Batool heart block Hospitalists r, [place] I10 Essential (primary) hypertension E78.5 Hyperlipidemia, unspecified Office Visit 03/16/2016 11:48a Pulmonology And Marge R00.1 Bradycardia, Sleep Services Of MD Alyson unspecified [facility] I97.711 Intraoperative cardiac arrest during other surgery M17.12 Unilateral primary osteoarthritis, left knee R07.89 Other chest pain Office Visit 03/16/2016 2:33p [facility] Heriberto Vicente I46.9 Cardiac arrest, Nicolasa Lang cause unspecified Office Visit 03/15/2016 3:07p [facility] Alejandra Dutta E78.5 Hyperlipidemia, Of [facility] [place] Azael, unspecified [facility], [facility] Office Visit 03/15/2016 2:48p [facility] Perez I46.9 Cardiac arrest, Assoc,pc Dee Reyes cause unspecified Hospitalists I45.5 Other specified heart block I10 Essential (primary) hypertension M17.12 Unilateral primary osteoarthritis, left knee Office Visit 03/15/2016 9:13a [facility] Heriberto Vicente I46.9 Cardiac arrest, Nicolasa Lang cause unspecified R00.1 Bradycardia, unspecified R94.31 Abnormal electrocardiogram [ECG] [EKG] Office Visit 02/22/2016 1:00p [facility] Allison Wiggins, Z01.818 Encounter for other Medicine N.P. preprocedural examination M17.12 Unilateral primary osteoarthritis, left knee I10 Essential (primary) hypertension E78.00 Pure hypercholesterolemia, unspecified R94.31 Abnormal electrocardiogram [ECG] [EKG] Office Visit 02/13/2016 11:15a Orthopedic Services Jaja Go, M25.562 Pain in left Of C.M.A. M.D. knee M17.12 Unilateral primary osteoarthritis, left knee Office Visit 09/21/2015 Orthopedic Jaja M17.12 Unilateral primary 11:00a Services Of Nicolasa Stiles osteoarthritis, left C.M.A. knee M25.562 Pain in left knee Office Visit 09/01/2015 11:20a [facility] Damaris I10 Essential ( primary) Medicine Nicolasa Menendez hypertension M65.312 Trigger thumb, left thumb E78.5 Hyperlipidemia, unspecified M25.562 Pain in left knee Office Visit 01/27/2015 Orthopedic Hannah M65.312 Trigger thumb, 3:50p Services Of Nicolasa Martines left thumb C.M.A. Office Visit 12/21/2014 [facility] Damaris 401.1 Hypertension 11:20a Rhonda Menendez M.D. Benign 729.5 Pain In Limb Office Visit 11/19/2014 11:00a [facility] Damarismihaela Menendez 729.5 Pain In Limb Medicine Nicolasa 401.1 Hypertension Benign V76.19 Screening Breast Exam Malignant Neoplasms Other 724.03 Spinal Stenosis, Lumbar Region W/ Neurogenic Claudication V03.82 Streptococcus Pneumoniae Vaccination Spec Other 729.82 Cramp Of Limb Office Visit 09/17/2014 2:00p [facility] Daniel Good NP 729.5 Pain In Limb Medicine 724.2 Lumbago Office Visit 02/17/2014 10:00a [facility] Matt Torres, 911.5 Injury Superficial Medicine [employer] Insect Bite Trunk Nonvenomous Infected E906.4 Bite Nonvenomous Arthropod V04.81 Need For Prophylactic Vaccination & Inoculation/Influenza Office Visit 11/25/2013 11:00a [facility] Matt Torres NP 787.91 Diarrhea Medicine Office Visit 10/26/2013 1:00p [facility] Favio Sunshine 719.47 Pain Joint Ankle & Medicine Nicolasa Miller Foot Office Visit 09/01/2013 9:40a [facility] [place] 401.1 Hypertension Rhonda Menendez M.D. Benign 272.2 Hyperlipidemia Mixed 790.21 Impaired Fasting Glucose Office Visit 05/11/2013 1:20p [facility] [place] 790.21 Impaired Rhonda Menendez M.D. Fasting Glucose 401.1 Hypertension Benign Office Visit 03/23/2013 4:20p [facility] [place] 789.00 Pain Abdominal Rhonda Menendez M.D. Unspec Site 627.1 Postmenopausal Bleeding Office Visit 03/03/2013 1:20p [facility] [place] 401.1 Hypertension Rhonda Menendez M.D. Benign 790.21 Impaired Fasting Glucose V76.51 Special Screening For Malignant Neoplasms Colon V76.10 Screening For Malignant Neoplasm Breast V04.81 Need For Prophylactic Vaccination & Inoculation/Influenza 272.4 Hyperlipidemia Other Unspec Office Visit 11/03/2012 1:20p [facility] [place] V70.0 Examination Rhonda Menendez M.D. General Medical Routine AT [facility] 401.1 Hypertension Benign 790.21 Impaired Fasting Glucose 724.02 Spinal Stenosis, Lumbar Region, W/O Neurogenic Claudication V76.10 Screening For Malignant Neoplasm Breast V76.51 Special Screening For Malignant Neoplasms Colon Office Visit 06/09/2012 1:00p [facility] [place] 724.02 Spinal StenosisRhonda M.D. Lumbar Region, W/O Neurogenic Claudication 401.1 Hypertension Benign 790.21 Impaired Fasting Glucose 272.4 Hyperlipidemia Other Unspec 724.5 Backache Unspec Office Visit 03/11/2012 3:40p [facility] [place] 724.02 Spinal StenosisRhonda M.D. Lumbar Region, W/O Neurogenic Claudication Office Visit 10/18/2011 1:20p [facility] [place] V70.0 Examination Rhonda Menendez M.D. 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 Benign 724.02 Spinal Stenosis, Lumbar Region, W/O Neurogenic Claudication 272.4 Hyperlipidemia Other Unspec Office Visit 11/15/2010 9:45a [facility] [place] [place], 836.1 Dislocation Knee Services Of M.DaDrryl Tear Of Lateral C.M.A. Cartilage Or Meniscus Curre Office Visit 10/13/2010 10:30a [facility] [place] [place] 836.1 Dislocation Knee Services Of M.DDarryl Tear Of Lateral C.M.A. Cartilage Or Meniscus Curre 716.96 Arthropathy Unspec Lower Leg Office Visit 10/12/2010 DO Not Use [place] V70.0 Examination 10:40a Cristy Menendez M.D. 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 Localized Lower Leg Office Visit 09/25/2010 DO Not Use [place] 729.5 Pain In Limb 10:40a Cristy Menendez M.D. 272.4 Hyperlipidemia Other Unspec 723.1 Cervicalgia Office 06/23/2010 Neurosurgery Guido Knutson 724.02 Spinal Stenosis, Lumbar Visit 11:40a Services Of [facility]a Anne, W/O Neurogenic Claudication Office 10/28/2009 Neurosurgery Guido Knutson 724.02 Spinal Stenosis, Lumbar Visit 9:00a Services Of [facility] Anne, W/O Neurogenic Claudication Office 10/04/2009 DO Not Use [place] 782.0 Skin Sensation Visit 9:30a Cristy Menendez M.D. 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 Office 12/23/2008 DO Not Use [place], 272.0 Hypercholesterolemia Visit 1:15p Cristy Schroeder M.D. Pure 401.1 Hypertension Benign V04.81 Need For Prophylactic Vaccination & Inoculation/Influenza Office Visit 11/15/2008 DO Not Use Radcecilia, 625.9 Female Genital 2:45p Cristy Schroeder M.D. 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 Examination 401.1 Hypertension Benign 272.0 Hypercholesterolemia Pure 599.70 Hematuria, Unspecified Office Visit 05/12/2008 9:00a DO Not Use Radcecilia, 780.99 General Cristy Schroeder M.D. Symptoms Other 780.79 Malaise And Fatigue Other 272.0 Hypercholesterolemia Pure V05.8 Single Disease Spec Other Vaccination & Inoculation Office 06/24/2007 DO Not Use [place], 786.50 Pain Chest Unspec Visit 1:15p Cristy Schroeder M.D. Office 02/05/2007 DO Not Use [place], 272.0 Hypercholesterolemia Visit 11:15a Cristy Schroeder M.D. Pure 401.1 Hypertension Benign V04.81 Need For Prophylactic Vaccination & Inoculation/Influenza Office 08/07/2006 DO Not Use [place], 786.50 Pain Chest Unspec Visit 4:15p Cristy Schroeder M.D. Office 06/27/2006 DO Not Use [place], 272.0 Hypercholesterolemia Visit 1:15p Cristy Schroeder M.D. Pure 401.1 Hypertension Benign V72.81 Examination Preoperative Cardiovascular V05.3 Viral Hepatitis Vaccination & Inoculation V06.1 Xxjjutwhbr-Vutivvu-Daqpjdya Combined (DTaP) Plan of Treatment Future Appointment(s):06/09/2019 1:20 pm - [place] Menendez M.D. at [facility] [id number]/03/2019 - Fauzia Caban, [id number] HeadacheComments:Observe symptoms for any worsening and please report immediatelyTake ibuprofen as needed If symptomsworsen at all, cancel your bike trip and let me know
--- OUTSIDE RECORDS SUMMARY | 2018-09-11 17:02 | XMS REPORT | Continuity of Care Document ---
:1945 External Reference #:[id number] Author Name Cydneymichelle Olivia Care Team Providers Name Role Phone Damaris Menendez MD Primary Care Physician Unavailable Payers Date Identification Numbers Payment Provider Subscriber Policy Number: [id number] [facility] Health Plan o Mahendra Hubbard PayID: [id number] Attn [facility] [address] [place] [address] Advance Directives Type Date Description Status Comment Other Directive 01/11/2011 Health Care Proxy Current and Verified Problems Active Problems Provider Date Pure hypercholesterolemia Damaris Menendez M.D. Onset: 04/11/2010 Benign essential hypertension Damaris Menendez M.D. Onset: 04/11/2010 Endometrial carcinoma Damaris Menendez M.D. Onset: 08/10/2013 Note: Grade 1 Localized, primary osteoarthritis Jaja Stiles M.D. Onset: 02/13/2016 Arthroplasty of knee Jaja Stiles M.D. Onset: 04/02/2016 Open-angle glaucoma Damaris Menendez M.D. Onset: 04/29/2016 Family History Date Family Member(s) Observation Comments [...] Sex Unknown Marital Status Lives With Occupation [employer] E[employer] member Tobacco Use Start: Unknown End: Former Cigarette Smoker quit in 1975 Unknown ETOH Use Drinks 2 Alcoholic Beverages Per Day Tobacco Use Start: Unknown End: Patient is a former quit in 1978 Unknown smoker Smoking Status Reviewed: 08/14/18 Patient is a former quit in 1978 smoker Exercise Type/Frequency Exercises regularly Allergies, Adverse Reactions, Alerts Active Allergies Reaction Severity Comments Date Sulfa RASH 09/29/2009 Timolol caused heart to stop in surgey Severe 04/26/2016 Medications Active Medications SIG Qnty Indications Ordering Provider Date Vitamin B-12 1 by mouth every [facility], 10/25/2016 1000mcg day M.D. Tablets Ibuprofen [address] [facility], 10/25/2016 200mg M.D. Tablets Amoxicillin take 4 tablets by 4caps Z96.652 Jaja Stiles, 08/27/2016 500mg mouth 1 hour M.D. Capsules before dental procedure MDD 4 Compression Jaja Stiles, 04/02/2016 Stockings M.D. Misc Gabapentin take 1-[address] [facility], 08/28/2015 300mg by mouth at M.D. Capsules bedtime Potassium Chloride Take [address] [facility], 11/26/2014 Jillian ER Daily M.D. [...] Gabapentin take 1 to 2 60caps 729.5 [facility] 11/19/2014 - 300mg Capsules capsules by Nicolasa Menendez 12/21/2014 mouth at bedtime Hydrocodone-Acetaminophen 1-2 tabs by 180tabs 729.5 Daniel Good NP 2014 - mouth q4 hours 02/12/2016 5-325mg Tablets as needed pain limit 6 tabs per day Doxycycline Hyclate take two 2tabs E906.4 Matt Torres NP 02/17/2014 - 100mg tablets once. 09/17/2014 Tablets Potassium Chloride ER 1 by mouth 90tabs [facility] 11/27/2013 - 10Meq every day Nicolasa Menendez 11/26/2014 Tablets ER Pravastatin Sodium take one 90tabs 272.2 Damaris 09/01/2013 - 10mg Tablets tablet by Nicolasa Menendez 09/17/2014 mouth at bedtime Potassium Chloride CR 1 po qd 30tabs [facility] 03/24/2013 - 10Meq Nicolasa Menendez 11/27/2013 Tablets ER Salsalate 1-2 po bid 120tabs 724.02 [facility] 11/03/2012 - 750mg Tablets Nicolasa Menendez 03/03/2013 Tramadol HCL 1-2 tablets 60tabs 724.02 [facility] 11/03/2012 - 50mg Tablets every 6 hours Nicolasa Menendez 09/01/2013 as needed Vit B6 & B12 [facility] 06/09/2012 - Nicolasa Menendez 08/26/2016 Hydrochlorothiazide take 1 tablet 90tabs [facility] 08/03/2011 - 25mg daily Nicolasa Menendez 03/24/2016 Tablets Atorvastatin Calcium Take 1 Tablet 90tabs 272.4 [facility] 04/13/2011 - 10mg Daily Nicolasa Menendez 09/01/2013 Tablets Glucosamine-Chondroitin po bid 60caps [facility] 10/12/2010 - 1500mg Nicolasa Menendez 06/09/2012 Capsules Ibuprofen prn [facility] 10/12/2010 - 200mg Capsules Nicolasa Menendez 04/26/2016 Fish Oil 1 po qd [facility] 10/12/2010 - 300mg Capsules Nicolasa Menendez 06/09/2012 Glucosimine Sulfate 2 po qd [facility] 10/12/2010 - 1500mg Nicolasa Menendez 10/12/2010 Capsules Vitamin D 1 po qd 60caps [facility] 10/12/2010 - 300mg Capsules Nicolasa Menendez 06/09/2012 Lovastatin 2 tablets once 180tabs [facility] 09/29/2009 - 40mg Tablets daily at Nicolasa Menendez 10/12/2010 bedtime HCTZ 1 tablet once 90units [facility] 09/29/2009 - 25mg. daily Nicolasa Menendez 08/03/2011 Magnesium 1 by mouth Unknown - 250mg Tablets every day 11/13/2014 Centrum Flavor Burst Unknown - Adult 11/13/2014 Chewtabs Multivitamin Adults 50+ Unknown - Adlt 09/01/2015 50+ Tablets Magnesium Citrate 2 tabs at hs Unknown - 100mg Tablets 04/26/2016 Probiotic prn Unknown - 10/25/2016 Enoxaparin Sodium 80 mg s/c 16ml [facility] - 80mg/0.8ML every 12 hours Nicolasa Menendez 04/15/2016 Solution Eliquis 1 by mouth Adebayo Cummings - 5mg Tablets twice a day MD Jong 10/25/2016 Medications Administered in Office Medication SIG Qnty Indications Ordering Provider Date Depomedrol 80MG Hannah Martines M.D. 01/27/2015 Injection Depomedrol 40MG Gama Green M.D. 10/13/2010 Injection Immunizations CPT Code Status Date Vaccine Lot # [id number] Given 03/26/2018 Influenza Virus Vaccine, Quadrivalent, Split, Preservative Free 13249 Given 03/26/2017 Influenza Virus Vaccine, Quadrivalent, Split, Preservative Free [id number] Given 12/28/2015 Afluria Vaccine 08583 Given 03/25/2015 Influenza Virus Vaccine, Quadrivalent, Split, [id number] Preservative Free 55753 Given 11/19/2014 Pneumococcal Conjugate Vaccine 13 Valent For [id number] Intramuscular Use 14538 Given 02/17/2014 Flu Vaccine Split Virus Preservative Free For Indiv [id number] 3Yr Older 03381 Given 03/03/2013 Flu Vaccine Split Virus Preservative Free For Indiv [id number] 3Yr Older 92205 Given 10/12/2010 Pneumonia Vaccine [id number] 58185 Given 12/23/2008 Influenza Virus 3Yrs & Over 40952 Given 05/12/2008 Zoster (Zostavax) 96477 Given 02/05/2007 Influenza Virus 3Yrs & Over 28727 Given 02/05/2007 Influenza Virus 3Yrs & Over 47877 Given 06/27/2006 Hepatitis B Vaccine Adult Dosage 07290 Given 06/27/2006 Tdap - Tetanus/Diptheria/Acellular Pertussis 13483 Given 06/27/2006 Tdap - Tetanus/Diptheria/Acellular Pertussis Vital Signs Date Vital Result Comment 08/14/2018 12:02pm Height 65 inches 5'5" Weight [...] Result H/L Range Note Lipid Profile 05/29/2018 [facility] Triglycerides 149 mg/dL 1 (Trig/Chol/HDL) [address] [place] [address] [phone] Cholesterol 248 mg/dL 2 HDL Cholesterol 63.8 mg/dL 3 LDL Cholesterol 154 mg/dL 4 Comp Metabolic Panel 05/29/2018 [facility] Sodium 138 mmol/L N 135-145 [address] [place] [address] [phone] Potassium 4.1 mmol/L N 3.5-5.0 Chloride 104 [...] Egfr 111.8 >60 5 Laboratory test 05/21/2018 [facility] Troponin-I (TnI) 0.00 ng/ mL <0.04 6 finding [address] [place] [address] [phone] Laboratory test 05/21/2018 [facility] Magnesium 2.1 mg/dL N 1.9-2.7 finding [address] [place] [address] [phone] Troponin-I (TnI) 0.00 ng/mL <0.04 7 TSH (Thyroid Stim Horm) 0.91 mcIU/mL N 0.34-5.60 Comp Metabolic Panel 05/21/2018 [facility] Sodium 139 mmol/L N 135-145 [address] [place] [address] [phone] Potassium 4.1 mmol/L N 3.5-5.0 Chloride 107 [...] Egfr 107.8 >60 8 Urinalysis Profile 05/21/2018 [facility] Urine Color Yellow [address] [place] [address] [phone] Urine Appearance Clear Urine Specific Dalton 1.030 N 1.010-1.030 Urine pH 7.0 N 5-9 Urine Urobilinogen Negative Negative Urine Ketones Negative Negative Urine Protein Negative Negative Urine Leukocytes Negative Negative Urine Blood Negative Negative * * Abnormal Negative 9 Urine Nitrite Negative Negative Urine Bilirubin Negative Negative Urine Glucose Negative Negative Laboratory test 05/21/2018 [facility] D Dimer 321 ng/mL High Less [address] Quantitative Than 230 [place] [address] [phone] CBC Auto Diff 05/21/2018 [facility] White Blood 3.2 Low 3.5- 10.[address] Count 10^3/[place] [address] [phone] Red Blood Count 4.55 10^6/uL N 4.00-5.40 [...] Blood Cells % 0 Laboratory test 05/21/2018 [facility] Lactic Acid 0.7 mmol/L N 0.5-2.0 [address] [place] [address] [phone] CBC Auto Diff 06/17/2017 [facility] White Blood 3.7 10^3/uL N 3.5-10.[address] [place] [address] [phone] Red Blood Count 4.51 10^6/uL N 4.0-5.4 [...] Blood Cells % 0.1 Laboratory test 06/17/2017 [facility] C Reactive < 1.00 N < 5.00 12 finding 101 [facility] Protein mg/[place] [address] [phone] Erythrocyte Sed Rate 6 mm/Hr N 0-40 Xray 06/14/2017 [facility] Knee 3 Views LT <pending> [address] [place] [address] [phone] Laboratory 12/11/2016 [facility] Lyme Disease Negative N Negative 13 test finding 101 [facility] [place] [address] [phone] Lipid Profile 10/18/2016 [facility] Triglycerides 107 mg/dL N 14 (Trig/Chol/HDL [address] [place] [address] ) [place] [address] [phone] Cholesterol 223 mg/dL N 15 HDL Cholesterol 55.1 mg/dL N 16 LDL Cholesterol 147 mg/dL N 17 Comp Metabolic Panel 10/18/2016 [facility] Sodium 138 mmol/L N 133-[address] [place] [address] [phone] Potassium 4.2 mmol/L N 3.5-5.0 Chloride 105 [...] Egfr 109.1 N >60 18 Xray 05/09/2016 [facility] Knee 3 Views <pending> [address] [place] [address] [phone] CBC Auto Diff 04/02/2016 [facility] White Blood 6.7 10^3/uL N 3.5-10.[address] Count [place], [place] [address] [phone] Red Blood Count 3.81 10^6/uL Low 4.0-5.4 [...] Blood Cells % 0.1 N Inr/Protime 04/02/2016 [facility] Inr 1.82 High 0.89-1.[address] [place] [address] [phone] Laboratory test 04/02/2016 [facility] Partial 43.8 High 26.0- 36.[address] [place] [address] Time PTT [phone] Comp Metabolic 04/02/2016 [facility] Sodium 135 mmol/L N 133- [address] [place], [place] [address] [phone] Potassium 3.6 mmol/L N 3.5-5.0 Chloride 100 [...] Egfr 126.4 N >60 19 Laboratory 04/02/2016 [facility] D Dimer > 1050 High Less 20 test finding [address] Quantitative ng/[place] [address] [phone] Type & Screen 03/07/2016 [facility] Patient Blood O Positive N [address] [place] [address] [phone] Antibody Screen NEGATIVE N Urine Culture And 03/07/2016 [facility] Urine Culture SEE RESULT [address] [place] [address] [phone] CBC Auto Diff 03/01/2016 [facility] White Blood 4.0 10^3/uL N 3.5-[address] Count 0.8 [place] [address] [phone] Red Blood Count 4.67 10^6/uL N 4.0-5.4 [...] % 0.1 N Comp Metabolic Panel 03/01/2016 [facility] Sodium 138 mmol/L N 133-[address] [place] [address] [phone] Potassium 4.1 mmol/L N 3.5-5.0 Chloride 103 [...] 111.3 N >60 23 Laboratory test 03/01/2016 [facility] Hemoglobin A1c 5.6 % N Less [address] (Glyco HGB) than 6.0 [place], [place] [address] [phone] Inr/Protime 03/01/2016 [facility] Inr 0.82 Low 0.89-1.[address] 1 [place] [address] [phone] Laboratory test 03/01/2016 [facility] Partial 32.0 N 26.0-36. [address] DRIVE Thrombo Time seconds 3 [place] [address] PTT [phone] Urinalysis 03/01/2016 [facility] Urine Color Yellow N Profile [address] [place] [address] [phone] Urine Appearance Clear N Urine Specific Dalton 1.012 N 1.010-1.030 Urine pH 5.0 N 5-9 Urine Urobilinogen Negative N Negative Urine Ketones Negative N Negative Urine Protein Negative N Negative Urine Leukocytes Negative N Negative Urine Blood Negative N Negative Urine Nitrite Negative N Negative Urine Bilirubin Negative N Negative Urine Glucose Negative N Negative Laboratory test 11/07/2015 [facility] Hemoglobin A1c 5.8 % N Less 25, [address] (Glyco HGB) than 6.0 [place], [place] [address] [phone] Comp Metabolic 11/07/2015 [facility] Sodium 145 N 133-[address] mmol/[place] [address] [phone] Potassium 4.2 mmol/L N 3.5-5.0 Chloride 108 [...] 119.5 N >60 27 Lipid Profile 11/07/2015 [facility] Triglycerides 110 mg/dL N 28 (Trig/Chol/HDL) [address] [place] [address] [phone] Cholesterol 211 mg/dL N 29 HDL Cholesterol 57.0 mg/dL N 30 LDL Cholesterol 132 mg/dL N 31 Laboratory test 11/25/2014 [facility] Hemoglobin A1c 5.9 % N Less than [address] (Glyco HGB) 6.0 [place] [address] [phone] Comp Metabolic 11/25/2014 [facility] Sodium 139 N 133-[address] mmol/[place] [address] [phone] Potassium 4.0 mmol/L N 3.5-5.0 Chloride 104 [...] 99.5 N >60 33 Lipid Profile 11/25/2014 [facility] Triglycerides 192 mg/dL N 34 (Trig/Chol/HDL) [address] [place] [address] [phone] Cholesterol 289 mg/dL N 35 HDL Cholesterol 53.2 mg/dL N 36 LDL Cholesterol 197 mg/dL N 37 Lipid Profile 08/24/2013 [facility] Triglycerides 123 mg/dL N 38 (Trig/Chol/HDL) [address] [place] [address] [phone] Cholesterol 232 mg/dL N 39 HDL Cholesterol 59.0 mg/dL N 40 LDL Cholesterol 148 mg/dL N 41 Comp Metabolic Panel 08/24/2013 [facility] Sodium 136 mmol/L N 133-[address] [place] [address] [phone] Potassium 3.9 mmol/L N 3.7-5.6 Chloride 101 [...] 116.2 N >60 42 Laboratory test 08/24/2013 [facility] Hemoglobin A1c 5.6 % N Less than [address] 6.0 [place] [address] [phone] Surgical 06/12/2013 [facility] S RUN [address] DATE: [place] [address] [phone] <SEE NOTE> CBC Auto Diff 05/07/2013 [facility] White Blood 4.5 Low 4.8- 10.[address] Count 10^3/[place] [address] [phone] Red Blood Count 4.45 10^6/uL 4.0-5.4 Hemoglobin [...] Cells % 0 Type & Screen 05/07/2013 [facility] Patient Blood Type O Positive [address] [place] [address] [phone] Antibody Screen NEGATIVE Comp Metabolic Panel 05/07/2013 [facility] Sodium 137 mmol/L 133-145 [address] [place] [address] [phone] Potassium 3.9 mmol/L 3.5-5.0 Chloride 100 mmol/L [...] Egfr 106.7 >60 45 Laboratory test 03/30/2013 [facility] Surgical RUN DATE: [address] Pathology 04/01/ <[place] [address] NOTE> [phone] Comp Metabolic 03/24/2013 [facility] Sodium 137 mmol/L 133- [address] 5 [place] [address] [phone] Potassium 3.4 mmol/L Low 3.5-5.0 Chloride 99 [...] Egfr 106.7 >60 47 CBC Auto 03/24/2013 [facility] White Blood 4.2 10^3/uL Low 4.8 -10.[address] [place] [address] [phone] Red Blood Count 4.55 10^6/uL 4.0-5.4 Hemoglobin [...] Cells % 0.1 Urine Culture And 03/23/2013 [facility] Urine Culture (SEE NOTE ) 48 Sensitivities [address] [place] [address] [phone] Ua Routine 03/23/2013 [employer] [facility] Ua Specific 1.010 Dalton Ua PH 5 Ua Color yellow Ua Appera cloudy Ua WBC small Ua Protein neg Ua Glucose neg Ua Ketones neg Ua Bilirubin neg Ua Urobilinogen neg Ua Nitrite neg Ua Occult Blood large Laboratory test 11/01/2012 [facility] Hemoglobin A1c 6.1 % High Less than 49 finding 101 [facility] 6.0 [place] [address] [phone] Lipid Profile 11/01/2012 [facility] Triglycerides 93 mg/dL 40 -200 (Trig/Chol/HDL) [address] [place] [address] [phone] Cholesterol 194 mg/dL Less than 200 HDL Cholesterol 67 mg/dL High 40-60 50 Cholesterol/HDL Ratio 2.9 Average 1-4.44 LDL Cholesterol 108.4 High Less Than 100 51 Basic Metabolic Panel 11/01/2012 [facility] Sodium 137 mmol/L 133-145 [address] [place] [address] [phone] Potassium 4.0 mmol/L 3.5-5.0 Chloride 103 mmol/L 101-111 Co2 Carbon Dioxide 29.0 mmol/L 22-32 Anion Gap 5.0 mmol/L 2-11 Glucose 96 mg/dL 70-100 Blood Urea Nitrogen 18 mg/dL 6-24 Creatinine 0.50 mg/dL 0.50-1.40 BUN/Creatinine Ratio 36.0 High 8-20 Calcium 9.2 mg/dL 8.1-9.9 Egfr Non- 122.3 >60 Egfr 157.3 >60 52 Lipid Profile 04/23/2012 [facility] Triglycerides 133 mg/dL 40-200 (Trig/Chol/HDL) [address] [place] [address] [phone] Cholesterol 219 mg/dL High Less than 200 HDL Cholesterol 68 mg/dL High 40-60 53 Cholesterol/HDL Ratio 3.2 Average 1-4.44 LDL Cholesterol 124.4 mg/dL High Less Than 100 54 Comp Metabolic Panel 04/23/2012 [facility] Sodium 138 mmol/L 133-145 [address] [place] [address] [phone] Potassium 4.0 mmol/L 3.5-5.0 Chloride 103 mmol/L [...] Egfr 107.0 >60 55 Laboratory test 04/23/2012 [facility] Vitamin B12 615 pg/mL 180-914 finding [address] [place] [address] [phone] CBC Auto Diff 04/23/2012 [facility] White Blood 4.2 Low 4.8- 10.8 101 [facility] Count 10^3/[place] [address] [phone] Red Blood Count 4.42 10^6/uL 4.0-5.4 Hemoglobin [...] Blood Cells % 0 Lipid Profile 06/02/2011 [facility] Triglyceride 68 mg/dL 40- 200 (Trig/Chol/HDL) [address] [place] [address] [phone] Cholesterol 178 mg/dL Less Than 200 56 High Density Lipoprotein 83 mg/dL High 40-60 57 Cholesterol/HDL Ratio 2.14 AVERAGE 1-4.44 Low Density Lipoprotein 81 mg/dL Less Than 100 58 Laboratory test finding 06/02/2011 [facility] Alt (SGPT) 27 U/L 14-54 [address] [place] [address] [phone] Ast (Sgot) 23 U/L 12-42 Laboratory test 04/11/2011 [facility] Vitamin B12 407 pg/mL 180-914 finding [address] [place] [address] [phone] Comp Metabolic 04/11/2011 [facility] Sodium 141 mmol/L 135- 145 Panel [address] [place] [address] [phone] Potassium 4.1 mmol/L 3.5-5.0 Chloride 100 mmol/L [...] 107.3 > 60 61 Laboratory test 04/11/2011 [facility] C Reactive 0.5 mg/L Less Than 62 finding 101 Protein High 3 [place] [address] Sensit [phone] Lipid Panel 04/11/2011 [facility] Triglyceride 128 mg/dL 40- [address] [place], [place] [address] [phone] Cholesterol 295 mg/dL High Less Than 200 63 High Density Lipoprotein 85 mg/dL High 40-60 64 Cholesterol/HDL Ratio 3.47 AVERAGE 1-4.44 Low Density Lipoprotein 184 mg/dL High Less Than 100 65 Lipid Profile 09/21/2010 [facility] Triglyceride 136 mg/dL 40 -200 (Trig/Chol/HDL) [address] [place] [address] [phone] Cholesterol 205 mg/dL High Less Than 200 66 High Density Lipoprotein 69 mg/dL High 40-60 67 Cholesterol/HDL Ratio 2.97 AVERAGE 1-4.44 Low Density Lipoprotein 109 mg/dL High Less Than 100 68 Laboratory test finding 09/21/2010 [facility] Alt (SGPT) 22 U/L 14-[address] [place] [address] [phone] Ast (Sgot) 23 U/L 12-42 Lipid Profile 05/10/2010 [facility] Triglyceride 93 mg/dL 40- 200 (Trig/Chol/HDL) [address] [place] [address] [phone] Cholesterol 210 mg/dL High Less Than 200 69 High Density Lipoprotein 72 mg/dL High 40-60 70 Cholesterol/HDL Ratio 2.92 AVERAGE 1-4.44 Low Density Lipoprotein 119 mg/dL High Less Than 100 71 Comp Metabolic Panel 05/10/2010 [facility] Sodium 139 mmol/L 135-[address] [place] [address] [phone] Potassium 3.8 mmol/L 3.5-5.0 Chloride 103 mmol/L [...] 107.7 > 60 74 Laboratory test 10/07/2009 [facility] BUN 14 mg/dL 6-[address] [place] [address] [phone] Laboratory test 10/04/2009 [facility] Hemoglobin A1c 6.0 % Less Than [address] 6.0 [place] [address] [phone] Vitamin B12 262 pg/mL 180-914 TSH 0.81 MIU/ML 0.34-5.60 CBC With 10/04/2009 [facility] White Blood 4.2 CUMM Low 4.8- 10.8 Electronic Diff [address] [place] [address] [phone] Red Cell Count 4.26 CUMM 4.2-5.4 Hemoglobin [...] - FDP greater than 20 ug/ml 11 [facility] Severe Sepsis and Septic Shock Management [...] submitted in 7-14 days. Test Performed by: [facility] - [address] [address] 14 Desirable <150 Borderline high 150-199 High [...] 22 SEE RESULT BELOW Name: MAHENDRA HUBBARD : [address]: Jaja Stiles MD Acct: [id number] Unit: [id number] AGE: 70 Location: PAT Re03/07/16 SEX: F Status: REG REF SPEC: [id number] KEVON: 03/07/[address]: Jaja Stiles MD REQ: [id number] RECD: 03/07/16 STATUS: COMP _ SOURCE: URINE SPDESC: ORDERED: Urine Culture QUERIES: Urine Source: Clean Catch Procedure Result Reported Site Urine Culture Final 03/08/16- 0834 ML No growth of clinically significant organisms * ML - MAIN LAB (PSC1) . END OF REPORT * ML=Testing performed at Main Lab DEPARTMENT OF PATHOLOGY, [address] [place] [address] Eugene Rendon M.D. Director [facility] # [id number] 23 Because ethnic data is not always [...] and in selective patients <6.0%.Please refer to [place] [employer] Diabetic care guidelines for further information. 25 PT IS FASTING 26 Therapeutic target for the treatment of diabetes Mellitus patients is <7% HBA1C, and in selective patients <6.0%.Please refer to [place] [employer] Diabetic care guidelines for further [...] and in selective patients <6.0%.Please refer to [place] [employer] Diabetic care guidelines for further [...] and in selective patients <6.0%.Please refer to [place] [employer] Diabetic care guidelines for further information. 44 RUN DATE: 06/16/13 [facility] LAB LIVE PAGE 1 RUN TIME: 4631 [address] [place], [place] [address] Specimen Inquiry Name: MAHENDRA HUBBARD Josh : [address]: Thompson Cyr MD Acct: [id number] Unit: [id number] AGE: 67 Location: ENDO Re06/12/13 SEX: F Status: REG REF SPEC: [id number] KEVON: 06/12/13[facility] DR: Thompson Cyr MD REQ: [id number] RECD: 06/12/13 STATUS: RAMOS KIDD DR: Damaris [...] performed at Main Lab DEPARTMENT OF PATHOLOGY, [address] [place] [address] Eugene Rendon M.D. Director [facility] Permit #[id number] 45 Because ethnic data is not always [...] <15 (or dialysis) 46 RUN DATE: 04/01/13 [facility] LAB LIVE PAGE 1 RUN TIME: [address] [place] [address] Specimen Inquiry Name: MAHENDRA HUBBARD : [address]: Allison Wiggins NP Acct: [id number] Unit: [id number] AGE: 67 Location: [facility] Re03/30/13 SEX: F Status: REG REF SPEC: [id number] KEVON: 03/30/13-[address]: Allison Wiggins NP REQ: [id number] RECD: 03/30/13 STATUS: SOUT _ ORDERED: LEVEL IV FINAL DIAGNOSIS Uterus, endometrium, biopsy: A. Abundant blood and scattered benign strips of predominantly atrophic endometrial mucosa with extensive tubal metaplasia. B. No evidence of hyperplasia or neoplasia. CLINICAL HISTORY No history given GROSS DESCRIPTION The specimen is received in formalin [facility] , and consists of multiple portions of casillas-red vermiform tissue that in aggregate measures 3.0 x 2.5 x 0.3 cm. Submitted entirely, one cassette. Signed (signature on file) Zohra Storey MD 1804 END OF REPORT * ML=Testing performed at Main Lab DEPARTMENT OF PATHOLOGY, Formerly named [place] [facility] [employer] [place], [place] [address] Eugene Rendon M.D. Director [facility] Permit #[id number] Because ethnic data is not always [...] <15 (or dialysis) 48 RUN DATE: 03/25/13 [facility] LAB LIVE PAGE 1 RUN TIME: 925 Formerly named [facility] [place], [place] [address] Specimen Inquiry Name: HUBBARDMAHENDRA : [address]: Damaris Menendez MD Acct: [id number] Unit: [id number] AGE: 67 Location: [facility] Re03/23/13 SEX: F Status: REG REF SPEC: [id number] KEVON: 03/23/[address]: Damaris Menendez MD REQ: [id number] RECD: 03/23/13 STATUS: COMP _ SOURCE: URINE SPDESC: ORDERED: Urine Culture QUERIES: Medent Number [id number] Procedure Result Verified Site Urine Culture Final 03/25/13- 0926 ML Organism 1 NORMAL YOON [facility] Count 25-50,000 (Moderate) CFU/ML END OF REPORT * ML=Testing performed at Main Lab DEPARTMENT OF PATHOLOGY, [address] [place] [address] Eugene Rendon M.D. Director [facility] Permit #[id number] Therapeutic target for the treatment of diabetes Mellitus patients is <7% HBA1C, and in selective patients <6.0%.Please refer to [place] [employer] Diabetic care guidelines for further [...] has been shown to interfere with the Jendrassik-Pitts method for measuring total bilirubin. Samples from [...] IN SELECTIVE PATIENTS <6.0%. PLEASE REFER TO [place] [employer] DIABETIC CARE GUIDELINES FOR FURTHER INFORMATION. Procedures Date Code Description Status 05/22/2018 65920 ECG Monitor/Recording W/Visual Superimposition Completed Scanning 03/26/2018 [id number] Mammogram Completed 04/02/2017 06301 Repair Complex Wound 2.6-7.5CM Trunk Completed 04/02/2017 20555 Excise Benign Lesion > 4CM Trunk/Arm/Leg Completed 09/26/2016 [id number] Mammogram Completed 03/20/2016 02197 TKR Total Knee Replacement Completed 03/20/2016 26675 TKR Total Knee Replacement Completed 03/18/2016 25003 EKG, Interpretation Only Completed 03/16/2016 66884 Left Heart Cath. Incl S/I Coronaries, Angio S/I V Gram Completed If Done 03/16/2016 78932 EKG, Interpretation Only Completed 03/15/2016 39276 ECHO Transthorasic Realtime 2D W Doppler & Color Flow Completed Hosp 03/15/2016 96000 EKG, Interpretation Only Completed 03/15/2016 72660 TKR Total Knee Replacement Completed 03/15/2016 41580 TKR Total Knee Replacement Completed 03/01/2016 57122 ECHO Transthoracic, Real-Time 2D With Doppler And Completed Color Flow 02/27/2016 77876 ECHO Transthoracic, Real-Time 2D With Doppler And Completed Color Flow 02/23/2016 85165 ECHO Transthoracic, Real-Time 2D With Doppler And Completed Color Flow 02/22/2016 13998 EKG Tracing & Interpretation Completed 02/10/2016 [id number] Diabetic Retinal Eye Exam Completed 12/22/2015 191840849 Diabetic Retinal Eye Exam Completed 01/27/2015 05115 Inject Tendon Sheath Or Ligament Aponeurosis Eg Completed Plantar Fascia 11/26/2014 [id number] Mammogram Completed 06/12/2013 45913492 Colonoscopy Completed 03/30/2013 39521 Endometrial Sampling W Or W/O Endocervical BX W Or W/O Completed Cerv Dilat 11/28/2011 [id number] Mammogram Completed 10/18/2011 14196 EKG Tracing & Interpretation Completed 08/06/2011 70763 EKG Tracing & Interpretation Completed 10/25/2010 [id number] Mammogram Completed 10/13/2010 01955 Inject/Drain Joint/Bursa Major W/O US Completed 09/29/2010 25140 Rad Exam; Knee, Ap&L Completed 09/29/2010 70977 Xray Knee 3 Views Completed 12/08/2008 23355 Endometrial Sampling W Or W/O Endocervical BX W Or W/O Completed Cerv Dilat 07/13/2008 [id number] Bone Mineral Density Test Completed 07/13/2008 [id number] Mammogram Completed 11/24/2007 82825 Endometrial Sampling W Or W/O Endocervical BX W Or W/O Completed Cerv Dilat 11/24/2007 98782 Endometrial Sampling W Or W/O Endocervical BX W Or W/O Completed Cerv Dilat 06/24/2007 28535 EKG Tracing & Interpretation Completed 06/24/2007 65327 EKG Tracing & Interpretation Completed 08/07/2006 68731 EKG Tracing & Interpretation Completed 06/27/2006 60523 EKG Tracing & Interpretation Completed 06/27/2006 12241 EKG Tracing & Interpretation Completed Encounters Type Date Location Provider Dx Diagnosis Office Visit 05/22/2018 [facility] Damaris Cotton, R42 Dizziness and 1:00p Medicine Nicolasa giddiness R00.2 Palpitations Office Visit 09/02/2017 9:00a Orthopedic Gama Green, M25.662 Stiffness of left Services Of M.D. knee, not C.M.A. elsewhere classified Z96.652 Presence of left artificial knee joint Office Visit 08/26/2017 10:45a Orthopedic Services Jaja Stiles M25.562 Pain in left Of C.M.A. M.D. knee M25.462 Effusion, left knee Z96.652 Presence of left artificial knee joint Office Visit 06/14/2017 11:30a Orthopedic Services Jaja Stiles M25.562 Pain in left Of C.M.A. M.D. knee M25.462 Effusion, left knee Z96.652 Presence of left artificial knee joint Office Visit 04/17/2017 2:30p [facility] Dermatology Sterling Reed MD L85.3 Xerosis cutis D23.71 Oth benign neoplasm skin/ right lower limb, including hip Z48.02 Encounter for removal of sutures Office Visit 03/29/2017 11:00a [facility] Dermat[facility] Sterling Reed MD L72.0 Epidermal cyst Office Visit 10/25/2016 10:40a [facility] Damaris R25.2 Cramp and spasm Rhonda Menendez M.D. I10 Essential (primary) hypertension L60.3 Nail dystrophy Office Visit 08/27/2016 11:15a Orthopedic Jaja Stiles Z96.652 Presence of left Services Of M.D. artificial knee C.M.A. joint M25.562 Pain in left knee M25.462 Effusion, left knee Office Visit 05/21/2016 9:20a [facility] Damaris F43.20 Adjustment Medicine Nicolasa Menendez disorder, unspecified Office Visit 04/03/2016 1:20p [facility] Damaris I82.492 Acute embolism Medicine Nicolasa Menendez and thrombosis of deep vein of l low extrem K59.00 Constipation, unspecified Office Visit 03/22/2016 9:05a [facility] Desi Edgar, I45.5 Other specified Assoc,pc N.P. heart block Hospitalists I10 Essential (primary) hypertension E78.5 Hyperlipidemia, unspecified Z96.652 Presence of left artificial knee joint Office Visit 03/21/2016 9:05a [facility] I45.5 Other specified Assoc,pc Kye, SOD STRIPPER heart block Hospitalists I10 Essential (primary) hypertension E78.5 Hyperlipidemia, unspecified Z96.652 Presence of left artificial knee joint Office Visit 03/20/2016 9:04a [facility] I45.5 Other specified Assoc,pc Kye, SOD STRIPPER heart block Hospitalists I10 Essential (primary) hypertension E78.5 Hyperlipidemia, unspecified Office Visit 03/19/2016 9:02a [facility] I45.5 Other specified Assoc,pc BALAJI Fishman heart block Hospitalists I10 Essential (primary) hypertension E78.5 Hyperlipidemia, unspecified Office Visit 03/18/2016 9:01a [facility] Marge I45.5 Other specified Assoc,pc BALAJI Gaona heart block Hospitalists I10 Essential (primary) hypertension E78.5 Hyperlipidemia, unspecified Office Visit 03/18/2016 2:31p [facility] Heriberto Vicente I46.9 Cardiac arrest, Nicolasa Lang cause unspecified Office Visit 03/17/2016 2:34p [facility] Heriberto Vicente I46.9 Cardiac arrest, Nicolasa Lang cause unspecified Office Visit 03/17/2016 9:00a [facility] Khadar I45.5 Other specified Assoc,pc [place] heart block Hospitalists r, [place] I10 Essential (primary) hypertension E78.5 Hyperlipidemia, unspecified Office Visit 03/16/2016 11:48a Pulmonology And Marge R00.1 Bradycardia, Sleep Services Of 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 I97.711 Intraoperative cardiac arrest during other surgery M17.12 Unilateral primary osteoarthritis, left knee R07.89 Other chest pain Office Visit 03/16/2016 2:33p [facility] Heriberto Vicente I46.9 Cardiac arrest, Nicolasa Lang cause unspecified Office Visit 03/15/2016 3:07p [facility] Alejandra Dutta E78.5 Hyperlipidemia, Of [facility] AT [facility] MD Azael, unspecified FACC, FSCAI Office Visit 03/15/2016 2:48p [facility] Fabian Perez I46.9 Cardiac arrest, Assoc,pc Dee Reyes cause unspecified Hospitalists I45.5 Other specified heart block I10 Essential (primary) hypertension M17.12 Unilateral primary osteoarthritis, left knee Office Visit 03/15/2016 9:13a [facility] Heriberto Vicente I46.9 Cardiac arrest, Nicolasa Lang cause unspecified R00.1 Bradycardia, unspecified R94.31 Abnormal electrocardiogram [ECG] [EKG] Office Visit 02/22/2016 1:00p [facility] Allison Wiggins, Z01.818 Encounter for other Medicine N.P. preprocedural examination M17.12 Unilateral primary osteoarthritis, left knee I10 Essential (primary) hypertension E78.00 Pure hypercholesterolemia, unspecified R94.31 Abnormal electrocardiogram [ECG] [EKG] Office Visit 02/13/2016 11:15a Orthopedic Services Jaja Stiles, M25.562 Pain in left Of C.M.A. M.D. knee M17.12 Unilateral primary osteoarthritis, left knee Office Visit 09/21/2015 Orthopedic Jaja M17.12 Unilateral primary 11:00a Services Of Nicolasa Stiles osteoarthritis, left C.M.A. knee M25.562 Pain in left knee Office Visit 09/01/2015 11:20a [facility] Damaris I10 Essential ( primary) Rhonda Menendez M.D. hypertension M65.312 Trigger thumb, left thumb E78.5 Hyperlipidemia, unspecified M25.562 Pain in left knee Office Visit 01/27/2015 Orthopedic Hannah M65.312 Trigger thumb, 3:50p Services Of Nicolasa Martines left thumb C.M.A. Office Visit 12/21/2014 [facility] Damaris 401.1 Hypertension 11:20a Rhonda Menendez M.D. Benign 729.5 Pain In Limb Office Visit 11/19/2014 11:00a [facility] Damaris Shon 729.5 Pain In Limb Medicine MChaitanya 401.1 Hypertension Benign V76.19 Screening Breast Exam Malignant Neoplasms Other 724.03 Spinal Stenosis, Lumbar Region W/ Neurogenic Claudication V03.82 Streptococcus Pneumoniae Vaccination Spec Other 729.82 Cramp Of Limb Office Visit 09/17/2014 2:00p [facility] Daniel Good NP 729.5 Pain In Limb Medicine 724.2 Lumbago Office Visit 02/17/2014 10:00a [facility] Matt Torres, 911.5 Injury Superficial Medicine SOD STRIPPER Insect Bite Trunk Nonvenomous Infected E906.4 Bite Nonvenomous Arthropod V04.81 Need For Prophylactic Vaccination & Inoculation/Influenza Office Visit 11/25/2013 11:00a [facility] Matt Torres NP 787.91 Diarrhea Medicine Office Visit 10/26/2013 1:00p [facility] Favio Sunshine 719.47 Pain Joint Ankle & Medicine Nicolasa Miller Foot Office Visit 09/01/2013 9:40a [facility] Damaris 401.1 Hypertension Rhonda Menendez M.D. Benign 272.2 Hyperlipidemia Mixed 790.21 Impaired Fasting Glucose Office Visit 05/11/2013 1:20p [facility] Damaris 790.21 Impaired Rhonda Menendez M.D. Fasting Glucose 401.1 Hypertension Benign Office Visit 03/23/2013 4:20p [facility] Damaris 789.00 Pain Abdominal Rhonda Menendez M.D. Unspec Site 627.1 Postmenopausal Bleeding Office Visit 03/03/2013 1:20p [facility] Damaris 401.1 Hypertension Rhonda Menendez M.D. Benign 790.21 Impaired Fasting Glucose V76.51 Special Screening For Malignant Neoplasms Colon V76.10 Screening For Malignant Neoplasm Breast V04.81 Need For Prophylactic Vaccination & Inoculation/Influenza 272.4 Hyperlipidemia Other Unspec Office Visit 11/03/2012 1:20p [facility] Damaris V70.0 Examination Rhonda Menendez M.D. General Medical Routine AT Health Care Facility 401.1 Hypertension Benign 790.21 Impaired Fasting Glucose 724.02 Spinal Stenosis, Lumbar Region, W/O Neurogenic Claudication V76.10 Screening For Malignant Neoplasm Breast V76.51 Special Screening For Malignant Neoplasms Colon Office Visit 06/09/2012 1:00p [facility] Damaris 724.02 Spinal StenosisRhonda M.D. Lumbar Region, W/O Neurogenic Claudication 401.1 Hypertension Benign 790.21 Impaired Fasting Glucose 272.4 Hyperlipidemia Other Unspec 724.5 Backache Unspec Office Visit 03/11/2012 3:40p [facility] Damaris 724.02 Spinal StenosisRhonda M.D. Lumbar Region, W/O Neurogenic Claudication Office Visit 10/18/2011 1:20p [facility] Damaris V70.0 Examination Rhonda Menendez M.D. 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 Benign 724.02 Spinal Stenosis, Lumbar Region, W/O Neurogenic Claudication 272.4 Hyperlipidemia Other Unspec Office Visit 11/15/2010 9:45a Orthopedic Gama Green, 836.1 Dislocation Knee Services Of Nicolasa Tear Of Lateral C.M.A. Cartilage Or Meniscus Curre Office Visit 10/13/2010 10:30a Orthopedic Gama Green 836.1 Dislocation Knee Services Of Nicolasa Tear Of Lateral C.M.A. Cartilage Or Meniscus [...] Spinal Stenosis, Lumbar Visit 11:40a Services Of Neena Lloyd M.D. [employer], W/O Neurogenic Claudication Office 10/28/2009 Neurosurgery Guido Knutson 724.02 Spinal Stenosis, Lumbar Visit 9:00a Services Of Neena Lloyd M.D. [employer], W/O Neurogenic Claudication Office 10/04/2009 DO Not Use Damaris 782.0 Skin Sensation Visit 9:30a Crsity Menendez M.D. Disturbance Office 03/04/2009 DO Not Use [place], 706.2 Sebaceous Cyst Visit 4:15p Cristy Schroeder M.D. Office 12/23/2008 DO Not Use [place], 272.0 Hypercholesterolemia Visit 1:15p Cristy Schroeder M.D. Pure 401.1 Hypertension Benign V04.81 Need For Prophylactic Vaccination & Inoculation/Influenza Office Visit 11/15/2008 DO Not Use [place], 625.9 Female Genital 2:45p Cristy Schroeder M.D. 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 Examination 401.1 Hypertension Benign 272.0 Hypercholesterolemia Pure 599.70 Hematuria, Unspecified Office Visit 05/12/2008 9:00a DO Not Use [place], 780.99 General Cristy Schroeder M.D. Symptoms Other [...] & Inoculation/Influenza Office 08/07/2006 DO Not Use [place], 786.50 Pain Chest Unspec Visit 4:15p Cristy Schroeder M.D. Office 06/27/2006 DO Not Use [place], 272.0 Hypercholesterolemia Visit 1:15p Repair Service Clerk-[place] Elda, M.D. Pure 401.1 Hypertension Benign V72.81 Examination Preoperative Cardiovascular V05.3 Viral Hepatitis Vaccination & Inoculation V06.1 Xlcxneypot-Wuztibx-Juotioqd Combined (DTaP) Plan of Treatment Future Appointment(s):08/15/2018 1:00 pm - Fauzia Caban MD at [facility] [place]21/25/2020 1:20 pm - Damaris Menendez M.D. at [facility] Medicine
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
[2018-09-11 17:51] LABS: Hematocrit 36 % (35-47); Mean Corpuscular HGB Conc 34 g/dL (31-36); Mean Corpuscular Hemoglobin 32 pg (27-31); Mean Corpuscular Volume 94 fL (80-97); Mean Platelet Volume 8.6 fL (7.4-10.4); Platelet Count 212 10^3/uL (150-450); Red Blood Count 3.78 10^6 /uL (3.70-4.87); Red Cell Distribution Width 13 % (10.5-15); White Blood Count 4.3 10^3/uL (3.5-10.8)
[2018-09-11 18:08] LABS: Albumin/Globulin Ratio 1.7 (1-3); BUN/Creatinine Ratio 32.8 (8-20); Calcium 8.9 mg/dL (8.6-10.3); EGFR Non-African American 101.6 (>60); Globulin 2.4 g/dL (2-4); Total Bilirubin 0.7 mg/dL (0.2-1.0); Total Protein 6.4 g/dL (6.4-8.9)
[2018-09-11 19:52] VITALS: BP 129/79
== END | disposition home or self-care (01) ==
LOC: ED 15:27
DX: S09.90XA Unspecified injury of head, initial encounter (principal); F07.81 Postconcussional syndrome; V98.8XXA Other specified transport accidents, initial encounter; Y92.9 Unspecified place or not applicable; Z88.2 Allergy status to sulfonamides; Z86.718 Personal history of other venous thrombosis and embolism; Z85.42 Personal history of malignant neoplasm of other parts of uterus; Z87.891 Personal history of nicotine dependence; R11.0 Nausea
CPT/HCPCS: 36415; 70450; 80053; 85027; 99282